=== PATIENT | female | born 1945 | race Two or more races ===

== ENCOUNTER → 2024-08-28 | Outpatient (CLI) | payer MEDICARE, SELFPAY ==
[2024-08-28 12:38] LABS: Basophils # (Auto) 0.1 Thou/mm3 (0.0-0.2); Basophils % (Auto) 1 % (0-2.5); Eosinophils # (Auto) 0.1 Thou/mm3 (0.0-0.5); Eosinophils % (Auto) 2 % (0-10); Hematocrit 32.1 % (36.0-46.0); Hemoglobin 11.1 g/dL (12.0-16.0); Immature Granulocytes % (Auto) 0 % (0-0); Immature Granulocytes Auto 0.02 Thou/mm3 (0.00-0.00); Lymphocytes # (Auto) 1.2 Thou/mm3 (1.0-4.8); Lymphocytes % (Auto) 21 % (10-50); Mean Corpuscular HGB Conc 34.6 g/dl (31.0-37.0); Mean Corpuscular Hemoglobin 34.6 pg (25.0-35.0); Mean Corpuscular Volume 100 fL (80-100); Monocytes # (Auto) 0.3 Thou/mm3 (0.0-0.8); Monocytes % (Auto) 6 % (0-12); Neutrophils # (Auto) 3.9 Thou/mm3 (1.8-7.7); Neutrophils % (Auto) 70 % (37-80); Nucleated Red Blood Cell % 0 /100 WBC (0); Platelet Count 85 Thou/mm3 (140-440); RDW Standard Deviation 47.4 fL (36.4-46.3); Red Blood Count 3.21 Miln/mm3 (4.00-5.20); White Blood Count 5.6 Thou/mm3 (3.6-11.0)
[2024-08-28 12:51] LABS: Alanine Aminotransferase 17 U/L (10-49); Albumin, Serum 3.6 gm/dL (3.4-4.8); Albumin/Globulin Ratio 1.2 (1.2-2.2); Alkaline Phosphatase 79 U/L (46-116); Anion Gap 7 (7-16); Aspartate Amino Transferase 35 U/L (0-34); BUN/Creatinine Ratio 14 Ratio (12-20); Bilirubin,Total 0.5 mg/dL (0.3-1.2); Blood Urea Nitrogen 15 mg/dL (9-23); Calcium 9.9 mg/dL (8.3-10.6); Calcium (Corrected) 10.2 mg/dL (8.5-10.1); Carbon Dioxide 25.6 mMol/L (20.0-31.0); Chloride 106 mMol/L (98-107); Creatinine (Component) 1.1 mg/dL (0.6-1.3); Globulin 2.9 gm/dL (2.3-3.5); Glucose 121 mg/dL (74-106); Osmolality,Calculated 279 (275-295); Sodium 139 mMol/L (136-145); Total Protein 6.5 gm/dL (5.7-8.2); eGFR 50 See Note
== END | disposition home or self-care (01) ==
PROVIDERS: PCP Family Medicine; Referring Provider Internal Medicine Hematology & Oncology; Visit Provider Internal Medicine Hematology & Oncology
DX: C50.119 Malignant neoplasm of central portion of unspecified female breast (principal)
CPT/HCPCS: 36415; 80053; 85025

== ENCOUNTER 2024-09-02 10:27 | Outpatient (RCR) | payer MEDICARE, BC, SELFPAY ==
--- NOTE | 2024-09-02 11:33 | CTCFLWUP_ITS ---
Patient: ELEANOR MARY : 1945 Page 6 of 7 FOLLOW UP NOTE DATE OF SERVICE: 09/02/2024 NAME: ELEANOR MARY ACCOUNT: [id number] : 1945 AGE: 79 INTERVAL HISTORY: Patient is taking her tamoxifen and verzenio. She takes verzenio 100 mg daily and tolerating well. 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 S/p ultrasound-guided biopsy (05/02/2023) Oncotype DX recurrence score 55. In view of the elderly age chemotherapy was not offered. On tamoxifen 20 mg p.o. daily since 07/31/2023. On abemaciclib 100 mg p.o. twice daily since 07/31/2023. S/p adjuvant radiation therapy completed on 10/13/2023. Patient decided not to take adjuvant Zometa PET CT scan (07/28/2023) negative for metastatic disease S/p left breast partial mastectomy and sentinel lymph node biopsy on 06/02/2023. Hypertension Osteoporosis (07/25/2023). Received 1 dose of Prolia on 08/15/2023 DATE OF DIAGNOSIS: 05/02/2023 STAGE/TNM: Stage IIb, ER positive, ID positive, HER2/radha low 1+ high grade invasive ductal carcinoma of the le ft breast. TREATMENT HISTORY: Care?Plan Start?Date Cycle Day Intent PROLia?60mg?every?6?months 11/25/2023 1 180 Palliative zolodronic?acid?adjuvant 10/05/2023 1 180 Curative?(adjuvant) PROLia?60mg?every?6?months 05/03/2024 1 180 Palliative HISTORY OF PRESENT ILLNESS: Eleanor Mary is a 79-year-old SPA speaking female with history of hypertension has the follo wing oncology history. Ms. Mary never had screening mammograms in the past. March 2023: Ms. Mary felt a lump in the lower part of her left breast while she was taking a show er. 04/07/2023: Bilateral diagnostic digital mammography? 04/26/2023: 05/02/2023: Ms. Mary had a stereotactic guided vacuum-assisted left breast biopsy with clip placeme nt 06/02/2023: Ms. Mary had left breast partial mastectomy and sentinel lymph node biopsy 06/23/2023: Oncotype DX? 07/18/2023: Bone density test 07/28/2023: PET/CT scan 07/31/2023: Ms. Mary is started on adjuvant tamoxifen as well as abemaciclib 100 mg p.o. twice constance ly. 08/15/2023:: Ms. Mary is started on adjuvant radiation therapy to the left breast. 08/15/2023: Ms. Mary received first dose of Prolia. OTHER MEDICAL HISTORY/CONDITIONS: COVID?BREAST??CA???HIGH?BLOOD?PRESSURE DENIES FAMILY HISTORY: Patient?denies?family?cancer?history. SOCIAL HISTORY: Occupational?History:?RETIRED Education?Level:?Completed something less than 8th grade Marital?Status:? 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 Citracal + D Slow Release - 600 mg-12.5 mcg (500 unit) 1 tab one tab po twice a day 2. enalapril maleate - 10 mg Twice a Day 3. silver sulfadiazine - Twice a Day 4. tamoxifen - 20 mg 1 tab Daily 5. Toprol XL - 25 mg Daily 6. Verzenio - 100 mg 1 tab Twice a Day Medications Last Reconciled by Flaquita Briscoe MA on 04/29/2024 (Reconcile on Approval: ?) ALLERGIES: No Known Drug Allergies REVIEW OF SYSTEMS: A complete 14-point review of systems was performed and is negative except as noted in interval histo ry. LABORATORY DATA: I have personally reviewed and interpreted each of the patient?s relevant lab tests, abnormal finding s are below: Date 08/28/24 ??WHITE?BLOOD?COUNT?(Thou/mm3) 5.6 ??RED?BLOOD?COUNT?(Miln/mm3) 3.21?L ??HEMOGLOBIN?(gm/dl) 11.1?L ??HEMATOCRIT?(%) 32.1?L ??PLATELET?COUNT?(Thou/mm3) 85?L ??NEUTROPHILS?%,?AUTO?(%) 70 ??LYMPH?%,?AUTO?(%) 21 ??NEUTROPHILS,?AUTO?(Thou/mm3) 3.9 ASSESSMENT/PLAN: 1. Stage IIb, ER positive, ID positive, HER2/radha low 1+ i high grade invasive ductal carcinoma of the left breast. S/p ultrasound-guided biopsy (05/02/2023) Oncotype Dx recurrence score 55 as documented above. Chemotherapy not offered in view of her elderly age. S/p left breast partial mastectomy and sentinel lymph node biopsy on 06/02/2023. Mammogram not completed since 2022 Plan [facility] mammogram and ultrasound of breast PET/CT scan to evaluate metastatic disease Hypercalcemia ? concerning for metastatic disease Repeat cmp and iv fluids Ms. Mary is currently on adjuvant tamoxifen 20 mg p.o. daily as well as abemaciclib 100 mg p.o. tw ice daily. She is tolerating these medications very well without any significant side effects.stop c itracal S/p adjuvant radiation therapy. 2. PET CT scan negative for metastatic disease. 3. osteoporosis. Received 1 dose of Prolia on 09/02/2023 4. Anxiety and depression 5. Hypertension 1. Restart Prolia 60 mg subcu every 6 months. 2. Continue tamoxifen and abemaciclib. 3. I will see Ms. Mary back in clinic in 3-4 weeks s with labs for follow-up RETURN TO CLINIC:3-4 weeks BILLING AND COMPLIANCE: I reviewed external records from providers outside my specialty as summarized above. I spent a total of 50 minutes on this patient?s care on the day of their visit excluding time spent related to any bi lled procedures. This time includes time spent with the patient as well as time spent documenting in the medical record, reviewing patients records and tests, obtaining history, placing orders, communi cating with other healthcare professionals, counseling the patient, family or caregiver, and/or care coordination for the diagnoses above. Electronically Signed by: {Object.Sanct_ID*[email or web address]@M}, {Object.Sanct_ID*PnP.Suffix@U} D: {Object.Sanct_Date} T: {Object.Sanct_Time} CC: Channing?Ca,? PCP: Alex Goodman Referring: Alex Goodman This document was completed utilizing speech recognition software. Grammatical errors, random word in sertions, pronoun errors, and incomplete sentences are an occasional consequence of this system due t o software limitations, ambient noise, and hardware issues. Any formal questions or concerns about th e content, text or information contained within the body of this dictation should be directly address ed to the provider for clarification.
== END 2024-09-13 23:59 | disposition home or self-care (01) ==
LOC: SCTC 10:27
PROVIDERS: PCP Family Medicine; Referring Provider Family Medicine; Visit Provider Internal Medicine Hematology & Oncology
DX: C50.112 Malignant neoplasm of central portion of left female breast (principal); Z17.0 Estrogen receptor positive status [ER+]; Z17.21 Progesterone receptor positive status; Z17.32 Human epidermal growth factor receptor 2 negative status; E83.52 Hypercalcemia; Z79.810 Long term (current) use of selective estrogen receptor modulators (SERMs); M81.0 Age-related osteoporosis without current pathological fracture; F41.9 Anxiety disorder, unspecified; F32.A Depression, unspecified; I10 Essential (primary) hypertension
CPT/HCPCS: Q3014

== ENCOUNTER → 2024-09-04 | Outpatient (CLI) | payer MEDICARE, BC, SELFPAY ==
[2024-09-04 14:04] LABS: Basophils # (Auto) 0.1 Thou/mm3 (0.0-0.2); Basophils % (Auto) 1 % (0-2.5); Eosinophils # (Auto) 0.1 Thou/mm3 (0.0-0.5); Eosinophils % (Auto) 2 % (0-10); Immature Granulocytes % (Auto) 0 % (0-0); Immature Granulocytes Auto 0.01 Thou/mm3 (0.00-0.00); Lymphocytes # (Auto) 1.5 Thou/mm3 (1.0-4.8); Lymphocytes % (Auto) 25 % (10-50); Mean Corpuscular HGB Conc 35.5 g/dl (31.0-37.0); Mean Corpuscular Hemoglobin 35.6 pg (25.0-35.0); Mean Corpuscular Volume 100 fL (80-100); Monocytes # (Auto) 0.4 Thou/mm3 (0.0-0.8); Monocytes % (Auto) 6 % (0-12); Neutrophils # (Auto) 3.9 Thou/mm3 (1.8-7.7); Neutrophils % (Auto) 66 % (37-80); Nucleated Red Blood Cell % 0 /100 WBC (0); Platelet Count 82 Thou/mm3 (140-440); RDW Standard Deviation 47.1 fL (36.4-46.3); Red Blood Count 3.09 Miln/mm3 (4.00-5.20)
[2024-09-04 14:11] LABS: Alanine Aminotransferase 15 U/L (10-49); Albumin, Serum 3.5 gm/dL (3.4-4.8); Albumin/Globulin Ratio 1.2 (1.2-2.2); Alkaline Phosphatase 78 U/L (46-116); Anion Gap 7 (7-16); Aspartate Amino Transferase 34 U/L (0-34); BUN/Creatinine Ratio 14 Ratio (12-20); Bilirubin,Total 0.4 mg/dL (0.3-1.2); Blood Urea Nitrogen 15 mg/dL (9-23); Calcium 9.9 mg/dL (8.3-10.6); Calcium (Corrected) 10.3 mg/dL (8.5-10.1); Carbon Dioxide 25.9 mMol/L (20.0-31.0); Chloride 105 mMol/L (98-107); Creatinine (Component) 1.1 mg/dL (0.6-1.3); Globulin 2.9 gm/dL (2.3-3.5); Glucose 132 mg/dL (74-106); Osmolality,Calculated 278 (275-295); Potassium 4.2 mMol/L (3.4-5.1); Sodium 138 mMol/L (136-145); Total Protein 6.4 gm/dL (5.7-8.2); eGFR 50 See Note
== END | disposition home or self-care (01) ==
PROVIDERS: PCP Family Medicine; Referring Provider Internal Medicine Hematology & Oncology; Visit Provider Internal Medicine Hematology & Oncology
DX: C50.119 Malignant neoplasm of central portion of unspecified female breast (principal)
CPT/HCPCS: 36415; 80053; 85025

== ENCOUNTER → 2024-09-19 | Outpatient (CLI) | payer MEDICARE, BC, SELFPAY | END | disposition home or self-care (01) | LOC: CDIM 14:19 | PROVIDERS: PCP Family Medicine; Referring Provider Internal Medicine Hematology & Oncology; Visit Provider Internal Medicine Hematology & Oncology | DX: Z53.29 Procedure and treatment not carried out because of patient's decision for other reasons (principal) ==

== ENCOUNTER → 2024-09-27 | Outpatient (CLI) | payer MEDICARE, BC, SELFPAY ==
--- NOTE | 2024-09-27 10:00 | XR_ITS ---
Examination: Breast ultrasound complete, bilateral Date and time of exam: September 27, 2024 1011 hours INDICATIONS: Mammogram April 07, 2023 3 suspicious masses left breast nipple level, left breast carcinoma diagnosis 2022 post lumpectomy 6 Technique: Real-time grayscale ultrasonographic imaging bilateral breasts, including all 4 quadrants as well as nipple retroareolar and axillary regions. Findings: No cystic or solid mass involving either breast Subcutaneous edema and skin thickening left breast likely related to lumpectomy and radiation therapy IMPRESSION: BI-RADS Category 0: Incomplete: Need additional imaging evaluation Recommend diagnostic mammography follow-up
--- NOTE | 2024-09-27 11:00 | XR_ITS ---
Examination: Screening digital mammography, bilateral Computer aided detection 3-D breast Tomosynthesis, bilateral Date and time of exam: September 27, 2024 1038 hrs. Compared to mammograms dating to April 07, 2023 Indication: Screening, personal history left breast cancer post treatment Technique: Nonmagnified MLO, CC views of the breasts to been obtained, reconstructed from 3-D Tomosynthesis images. R2 computer aided detection program utilized for evaluation of suspicious masses and/or abnormal calcifications. 3-D Tomosynthesis images obtained. Findings: The breasts are heterogeneously dense, which may obscure small masses Extensive scar formation skin thickening left breast noted consistent with treated left breast cancer post Benign calcifications No interval suspicious masses Impression: BI-RADS category II: Benign Findings. Recommend 1 year follow-up mammogram.
== END | disposition home or self-care (01) ==
LOC: CDIM 09:41
PROVIDERS: PCP Family Medicine; Referring Provider Internal Medicine Hematology & Oncology; Visit Provider Internal Medicine Hematology & Oncology
DX: R92.323 Mammographic fibroglandular density, bilateral breasts (principal); R92.1 Mammographic calcification found on diagnostic imaging of breast; C50.119 Malignant neoplasm of central portion of unspecified female breast
CPT/HCPCS: 76641; 77063; 77067

== ENCOUNTER 2024-10-10 12:57 | Outpatient (RCR) | payer MEDICARE, BC, SELFPAY | END 2024-10-11 23:59 | disposition home or self-care (01) | LOC: SCTC 12:57 | PROVIDERS: PCP Family Medicine; Referring Provider Family Medicine; Visit Provider Nurse Practitioner Family | DX: C50.112 Malignant neoplasm of central portion of left female breast (principal); Z17.0 Estrogen receptor positive status [ER+]; Z17.21 Progesterone receptor positive status; Z17.32 Human epidermal growth factor receptor 2 negative status; Z90.12 Acquired absence of left breast and nipple; Z92.3 Personal history of irradiation; Z79.810 Long term (current) use of selective estrogen receptor modulators (SERMs); M81.0 Age-related osteoporosis without current pathological fracture | CPT/HCPCS: 99212; G0463 ==

== ENCOUNTER → 2024-10-18 | Outpatient (CLI) | payer MEDICARE, BC, SELFPAY ==
[2024-10-18 15:02] LABS: Basophils # (Auto) 0.1 Thou/mm3 (0.0-0.2); Basophils % (Auto) 1 % (0-2.5); Eosinophils # (Auto) 0.1 Thou/mm3 (0.0-0.5); Eosinophils % (Auto) 2 % (0-10); Hematocrit 31.9 % (36.0-46.0); Hemoglobin 11.1 g/dL (12.0-16.0); Immature Granulocytes % (Auto) 0 % (0-0); Immature Granulocytes Auto 0.01 Thou/mm3 (0.00-0.00); Lymphocytes # (Auto) 1.6 Thou/mm3 (1.0-4.8); Lymphocytes % (Auto) 24 % (10-50); Mean Corpuscular HGB Conc 34.8 g/dl (31.0-37.0); Mean Corpuscular Hemoglobin 35.6 pg (25.0-35.0); Mean Corpuscular Volume 102 fL (80-100); Monocytes # (Auto) 0.4 Thou/mm3 (0.0-0.8); Monocytes % (Auto) 5 % (0-12); Neutrophils # (Auto) 4.5 Thou/mm3 (1.8-7.7); Neutrophils % (Auto) 68 % (37-80); Nucleated Red Blood Cell % 0 /100 WBC (0); Platelet Count 89 Thou/mm3 (140-440); Red Blood Count 3.12 Miln/mm3 (4.00-5.20); White Blood Count 6.6 Thou/mm3 (3.6-11.0)
[2024-10-18 15:11] LABS: Alanine Aminotransferase 13 U/L (10-49); Albumin, Serum 3.3 gm/dL (3.4-4.8); Albumin/Globulin Ratio 1.1 (1.2-2.2); Alkaline Phosphatase 77 U/L (46-116); Anion Gap 6 (7-16); Aspartate Amino Transferase < 10 U/L (0-34); BUN/Creatinine Ratio 13 Ratio (12-20); Bilirubin,Total 0.4 mg/dL (0.3-1.2); Blood Urea Nitrogen 16 mg/dL (9-23); Calcium 9.5 mg/dL (8.3-10.6); Calcium (Corrected) 10.1 mg/dL (8.5-10.1); Carbon Dioxide 25.5 mMol/L (20.0-31.0); Chloride 108 mMol/L (98-107); Creatinine (Component) 1.2 mg/dL (0.6-1.3); Glucose 124 mg/dL (74-106); Osmolality,Calculated 279 (275-295); Potassium 3.9 mMol/L (3.4-5.1); Sodium 139 mMol/L (136-145); Total Protein 6.3 gm/dL (5.7-8.2); eGFR 45 See Note
== END | disposition home or self-care (01) ==
PROVIDERS: PCP Family Medicine; Referring Provider Nurse Practitioner Family; Visit Provider Nurse Practitioner Family
DX: C50.112 Malignant neoplasm of central portion of left female breast (principal); C50.119 Malignant neoplasm of central portion of unspecified female breast
CPT/HCPCS: 36415; 80053; 85025

== ENCOUNTER 2024-10-30 09:47 | Outpatient (RCR) | payer MEDICARE, BC, SELFPAY | END 2024-11-11 23:59 | disposition home or self-care (01) | LOC: SCTC 09:47 | PROVIDERS: PCP Family Medicine; Referring Provider Family Medicine; Visit Provider Radiology Therapeutic Radiology | DX: C50.112 Malignant neoplasm of central portion of left female breast (principal); Z17.0 Estrogen receptor positive status [ER+]; Z17.21 Progesterone receptor positive status; Z17.32 Human epidermal growth factor receptor 2 negative status; Z79.810 Long term (current) use of selective estrogen receptor modulators (SERMs); Z90.12 Acquired absence of left breast and nipple | CPT/HCPCS: 99212; J0897; G0463 ==

== ENCOUNTER 2024-12-10 11:03 | Outpatient (RCR) | payer MEDICARE, BC, SELFPAY ==
--- NOTE | 2024-12-10 14:23 | CTCFLWUP_ITS ---
Patient: ELEANOR MARY : 1945 Page 2 of 2 FOLLOW UP NOTE DATE OF SERVICE: 12/10/2024 NAME: ELEANOR MARY ACCOUNT: [id number] : 1945 AGE: 79 INTERVAL HISTORY: Patient presents for a follow-up visit for breast cancer. The patient is currently taking tamoxifen 20mg daily and abemaciclib, both initiated on July 31, 2023. Eleanor Mary, a female with left breast cancer history, presented for follow-up of treatment side effects and recent PET-CT findings. She reported dry mouth, swollen feet, and shortness of breath while on tamoxifen and Verzenio therapy. Imaging showed bilateral pleural effusions and small ascites without metastatic disease. Verzenio was discontinued for 4 weeks with plans for repeat PET-CT, Monica blood test, echocardiogram, and cardiology referral to determine fluid etiology and guide further treatment decisions. Chief Complaint Follow-up for breast cancer treatment, fluid in lungs and abdomen, dry mouth, swollen feet, shortness of breath History of Present Illness Eleanor Mary is a patient with a history of left breast cancer, currently undergoing treatment with tamoxifen and Verzenio due to a high Oncotype Dx score. She presents for follow-up and management of her condition. The patient reports experiencing dry mouth, which is noted as a side effect of her current medication regimen. She also mentions swollen feet and shortness of breath, which may be indicative of fluid retention. The patient's ability to tolerate her current medications is being assessed. There is no mention of cancer symptoms at this time. A recent PET-CT scan was performed to evaluate for potential metastatic disease. While the scan was negative for metastases, it revealed fluid in both lungs and a small amount in the abdomen. The etiology of this fluid accumulation is currently unclear and may be related to heart or lung issues, or possibly cancer. The patient's overall health status and daily functioning are not explicitly discussed in the transcript. However, the presence of swollen feet and shortness of breath suggests potential impact on her daily activities. Medical History - Breast cancer in the left breast Surgical History - Left breast cancer surgery (type and date not specified) Medications and Supplements - Tamoxifen - Verzenio - Causes dry mouth - Blood pressure medication - Possible, not confirmed Review of Systems General: Positive for dry mouth. Cardiovascular: Positive for swollen feet. Respiratory: Positive for shortness of breath. Laboratory, Imaging, and Diagnostic Test Results - PET-CT scan: Negative for metastatic disease. Fluid noted in both lungs and small amount in abdomen. 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 S/p ultrasound-guided biopsy (05/02/2023) Oncotype DX recurrence score 55. In view of the elderly age chemotherapy was not offered. 0n tamoxifen 20 mg p.o. daily since 07/31/2023. On abemaciclib 100 mg p.o. twice daily since 07/31/2023. S/p adjuvant radiation therapy completed on 10/13/2023. Patient decided not to take adjuvant Zometa PET CT scan (07/28/2023) negative for metastatic disease S/p left breast partial mastectomy and sentinel lymph node biopsy on 06/02/2023. Hypertension Osteoporosis (07/25/2023). Received 1 dose of Prolia on 08/15/2023 Malignant neoplasm of central portion of unspecified female breast [ICD10] C50.119 DATE OF DIAGNOSIS: STAGE/TNM: TREATMENT HISTORY: Care?Plan Start?Date Cycle Day Intent PROLia?60mg?every?6?months 11/25/2023 1 180 Palliative zolodronic?acid?adjuvant 10/05/2023 1 180 Curative?(adjuvant) PROLia?60mg?every?6?months 05/03/2024 1 180 Palliative HISTORY OF PRESENT ILLNESS: 07/31/2023: Ms. Mary is started on adjuvant tamoxifen as well as abemaciclib 100 mg p.o. twice daily. 08/15/2023: Ms. Mary is started on adjuvant radiation therapy to the left breast. 09/2023: Ms. Mary received first dose of Prolia. OTHER MEDICAL HISTORY/CONDITIONS: COVID?BREAST??CA???HIGH?BLOOD?PRESSURE DENIES FAMILY HISTORY: Patient?denies?family?cancer?history. SOCIAL HISTORY: Occupational?History:?RETIRED Education?Level:?Completed something less than 8th grade Marital?Status:? 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 abemaciclib - 100 mg 1 tab Daily 2. Citracal + D Slow Release - 600 mg-12.5 mcg (500 unit) 1 tab one tab po twice a day 3. enalapril maleate - 10 mg Twice a Day 4. tamoxifen - 20 mg 1 tab Daily 5. Toprol XL - 25 mg Daily Medications Last Reconciled by Sfoia Cardoso MA on 12/10/2024 ALLERGIES: No Known Drug Allergies REVIEW OF SYSTEMS: A complete 14-point review of systems was performed and is negative except as noted in interval history. PHYSICAL EXAMINATION: VITAL SIGNS: Temperature?99, B/P?147/79, Oxygen?Saturation?98% PAIN: 0 - No pain ECOG Performance Status: 1 - Symptomatic; ambulatory; restricted in strenuous activity GENERAL APPEARANCE: Appears well, in no apparent distress, appropriately interactive. HEENT: Normocephalic, no temporal wasting, normal conjunctiva, no scleral icterus, normal hearing, lips without lesions, neck normal range of motion. CARDIOVASCULAR: Not assessed. PULMONARY: Normal respiratory effort, no respiratory distress or use of accessory muscles, speaking in full sentences, no tachypnea. EXTREMITIES: No pedal edema or cyanosis. SKIN: Normal skin appearance. NEUROLOGIC: Alert and oriented x4. PSHYCHIATRIC: Appropriate affect, mood normal, behavior normal, intact thought and speech. LABORATORY DATA: I have personally reviewed and interpreted each of the patient?s relevant lab tests, abnormal findings are below: Date 09/04/24 10/18/24 ??WHITE?BLOOD?COUNT?(Thou/mm3) 6.0 6.6 ??RED?BLOOD?COUNT?(Miln/mm3) 3.09?L 3.12?L ??HEMOGLOBIN?(gm/dl) 11.0?L 11.1?L ??HEMATOCRIT?(%) 31.0?L 31.9?L ??PLATELET?COUNT?(Thou/mm3) 82?L 89?L ??NEUTROPHILS?%,?AUTO?(%) 66 68 ??LYMPH?%,?AUTO?(%) 25 24 ??NEUTROPHILS,?AUTO?(Thou/mm3) 3.9 4.5 ??GLUCOSE,RANDOM?(mg/dL) 132?H 124?H ??BLOOD?UREA?NITROGEN?(mg/dL) 15 16 ??CREATININE?(mg/dL) 1.10 1.20 ??SODIUM?(mmol/L) 138 139 ??POTASSIUM?(mmol/L) 4.2 3.9 ??CHLORIDE?(mmol/L) 105 108?H ??CrCl?(CandG)?(ml/min) 41.25 37.92 ??AST/SGOT?(Unit/L) 34 <?10 ??ALT/SGPT?(Unit/L) 15 13 ??ALKALINE?PHOSPHATASE?(Unit/L) 78 77 ??BILIRUBIN,?TOTAL?(mg/dL) 0.4 0.4 ??PROTEIN?TOTAL?(gm/dl) 6.4 6.3 ??ALBUMIN,?SERUM?(gm/dl) 3.5 3.3?L ??GLOBULIN?(gm/dl) 2.9 3.0 ??ALBUMIN/GLOBULIN?RATIO 1.2 1.1?L ??CALCIUM,?SERUM?(mg/dL) 9.9 9.5 ??CALCIUM?SERUM?(CORRECTED)?(mg/dL) 10.3?H 10.1 ASSESSMENT/PLAN: 1. Stage IIb, ER positive, TN positive, HER2/radha low 1+ i high grade invasive ductal carcinoma of the left breast. S/p ultrasound-guided biopsy (05/02/2023) Oncotype Dx recurrence score 55 as documented above. Chemotherapy not offered in view of her elderly age. S/p left breast partial mastectomy and sentinel lymph node biopsy on 06/02/2023. S/p adjuvant radiation therapy. PET CT negative for metatstic disease, 07/28/2023. Bilateral breast US requesting diagnostic mammogram, 09/27/2024. Bilateral breast mammogram shows benign findings, 1 year mammogram recommended, 09/30/2024. Hypercalcemia ? concerning for metastatic disease, resolved, patient previously stopped citracal due to hypercalcemia. Currently on adjuvant tamoxifen 20 mg p.o. daily as well as abemaciclib 100 mg p.o. twice daily. She is tolerating these medications well without any significant side effects. Osteoporosis. Received 1 dose of Prolia on 09/02/2023, pending dental clearance prior to restarting. Continue tamoxifen and verzenio (abemaciclib). Pending restarting prolia. Pending open PET/CT in [place] to evaluate for metastic disease scheduled for 11/27/2024. Eleanor Mary, female with history of left breast cancer, currently on tamoxifen and Verzenio, presenting for follow-up with recent PET-CT findings of bilateral pleural effusions and ascites. History of left breast cancer Assessment: Patient has a history of left breast cancer with a high Oncotype Dx score, currently being treated with tamoxifen and Verzenio instead of chemotherapy. Recent PET-CT scan is negative for metastatic disease but shows bilateral pleural effusions and a small amount of ascites. The etiology of the fluid accumulation is unclear and could be due to cardiac issues, pulmonary problems, or potentially cancer-related. Patient reports dry mouth as a side effect of current medication regimen. There are also concerns about possible fluid retention, manifesting as swollen feet and shortness of breath. Plan: - Continue tamoxifen (current dose) - Discontinue Verzenio for 4 weeks - Repeat PET-CT scan in 3-4 weeks to reassess fluid accumulation - Order Monica blood test in 2-3 weeks to detect cancer DNA - If clear, repeat every 3 months for cancer recurrence monitoring - Order echocardiogram to evaluate cardiac function - Refer to forest scientist for evaluation of possible heart issues - Follow-up appointment in 4 weeks - Review echocardiogram results - Decide on continuation of current medication based on test results - Patient education: - Elevate feet at home to reduce swelling - Monitor daily weight; weight gain >1 lb may indicate excessive fluid intake - Use compression socks, massage, or vibrating machine to reduce swelling - Drink water as needed, avoiding over-hydration - If significant fluid accumulation causes breathing difficulties, go to ER for diuretic treatment 2. Continue with PCP for management of chronic condition such as depression and anxiety, HTN. ORDERS: Order # Description [id number] Comprehensive Metabolic Panel - 12 + CBC with Auto Diff [id number] CA 15-[id number] Scan + Chest + With W/O Contrast [id number] MD Follow Up 4 Week [id number] Basic Metabolic Panel [id number] Basic Metabolic Panel [id number] Basic Metabolic Panel [id number] Basic Metabolic Panel [id number] Basic Metabolic Panel RETURN TO CLINIC: BILLING AND COMPLIANCE: I reviewed external records from providers outside my specialty as summarized above. I spent a total of 50 minutes on this patient?s care on the day of their visit excluding time spent related to any billed procedures. This time includes time spent with the patient as well as time spent documenting in the medical record, reviewing patients records and tests, obtaining history, placing orders, communicating with other healthcare professionals, counseling the patient, family or caregiver, and/or care coordination for the diagnoses above. Electronically Signed by: Kenny Hutton MD T: 2:20 PM CC: Channing?Ca? PCP: Alex Goodman Referring: Alex Goodman This document was completed utilizing speech recognition software. Grammatical errors, random word insertions, pronoun errors, and incomplete sentences are an occasional consequence of this system due to software limitations, ambient noise, and hardware issues. Any formal questions or concerns about the content, text or information contained within the body of this dictation should be directly addressed to the provider for clarification.
== END 2024-12-11 23:59 | disposition home or self-care (01) ==
LOC: SCTC 11:03
PROVIDERS: PCP Family Medicine; Referring Provider Family Medicine; Visit Provider Internal Medicine Hematology & Oncology
DX: C50.112 Malignant neoplasm of central portion of left female breast (principal); Z17.0 Estrogen receptor positive status [ER+]; Z17.21 Progesterone receptor positive status; Z17.32 Human epidermal growth factor receptor 2 negative status; Z79.810 Long term (current) use of selective estrogen receptor modulators (SERMs); R68.2 Dry mouth, unspecified; T38.6X5D Adverse effect of antigonadotrophins, antiestrogens, antiandrogens, not elsewhere classified, subsequent encounter; Z92.3 Personal history of irradiation; Z90.12 Acquired absence of left breast and nipple; I10 Essential (primary) hypertension; M81.0 Age-related osteoporosis without current pathological fracture; J90 Pleural effusion, not elsewhere classified; R18.8 Other ascites
CPT/HCPCS: 99212; G0463

== ENCOUNTER → 2024-12-18 | Outpatient (CLI) | payer MEDICARE, BC, SELFPAY ==
--- NOTE | 2024-12-18 13:30 | ECHO_ITS ---
Transthoracic Echo Report Ht (in): 65 Wt (lb): 204 Exam Location: Echo Lab Status: [facility] Director: MISAEL Omer^^^^ Indications: Procedure Performed: BP: / HR: 101 Rhythm: Atrial flutter Technical Quality: Very technically difficult study MEASUREMENTS (Male / Female) Normal Values 2D ECHO LV Diastolic Diameter PLAX 3.5 cm 4.2 - 5.9 / 3.9 - 5.3 cm LV Systolic Diameter PLAX 2.0 cm IVS Diastolic Thickness 0.9 cm 0.6 - 1.0 / 0.6 - 0.9 cm LVPW Diastolic Thickness 0.9 cm 0.6 - 1.0 / 0.6 - 0.9 cm LV Relative Wall Thickness 0.5 LVOT Diameter 1.5 cm Aortic Root Diameter 3.2 cm LA Systolic Diameter LX 5.0 cm 3.0 - 4.0 / 2.7 - 3.8 cm LA Volume Index 15.5 cm?/m? 16 - 28 cm?/m? DOPPLER AV Peak Velocity 183.5 cm/s AV Peak Gradient 13.5 mmHg AV Mean Gradient 9.0 mmHg AV Velocity Time Integral 42.3 cm LVOT Peak Velocity 136.0 cm/s LVOT Peak Gradient 7.4 mmHg LVOT Velocity Time Integral 38.1 cm LVOT Cardiac Index 3243.1 cm?/min?m? AV Area Cont Eq vti 1.6 cm? AV Area Cont Eq pk 1.3 cm? MV Area PHT 4.3 cm? Mitral E Point Velocity 100.0 cm/s Mitral A Point Velocity 165.0 cm/s Mitral E to A Ratio 0.6 LV E' Lateral Velocity 7.1 cm/s Mitral E to LV E' Lateral Ratio 14.0 LV E' Septal Velocity 6.6 cm/s Mitral E to LV E' Septal Ratio 15.2 TR Peak Velocity 284.0 cm/s TR Peak Gradient 32.3 mmHg PV Peak Velocity 142.0 cm/s PV Peak Gradient 8.1 mmHg RVOT Peak Velocity 90.9 cm/s FINDINGS Left Ventricle The left ventricular ejection fraction is normal, estimated at 55-60%. Regional wall motion abnormalities are present. There is grade I diastolic dysfunction of the left ventricle (impaired relaxation pattern). Right Ventricle The right ventricle is normal in size and systolic function. The estimated right ventricular systolic pressure, 35 mmHg. Left Atrium The left atrial cavity size is mildly increased. Right Atrium The right atrium is normal by two-dimensional imaging, color flow and Doppler imaging with no structural abnormalities, no thrombus formation present. Atrial Septum The interatrial septum appears normal with no evidence of a shunt. Aorta The aorta is normal by two-dimensional, color flow and Doppler interrogation. Mitral Valve Mild thickening of the mitral valve leaflets. Mild mitral regurgitation. Moderate mitral annular calcification. Aortic Valve Aortic valve sclerosis. Diffuse calcification of the aortic valve. Mild thickening of the aortic valve leaflets. Tricuspid Valve There is mild tricuspid valve regurgitation. Pulmonic Valve The pulmonic valve is not well visualized. There is no significant pulmonic valve regurgitation. Vessels The pulmonary artery appears normal. The inferior vena cava pulmonary and hepatic veins appear normal. Pericardium The pericardium is normal by two-dimensional imaging. There is no significant pericardial effusion. CONCLUSIONS Indication: Malignant neoplasm of the breast Technically difficult study and suboptimal images which may affect the interpretation of the study. Normal LV size and function with an estimated EF of 55 to 60%. Diastolic dysfunction stage I. Normal RV size and function with mildly elevated estimated RVSP of 35 to 40 mmHg. Mild aortic valve stenosis with moderate aortic valve calcification. Moderate MAC, mild MR and mild TR. David Vega (Electronically Signed) Final Date: 18 Dec 2024 20:04
== END | disposition home or self-care (01) ==
LOC: SDIM 13:09
PROVIDERS: PCP Family Medicine; Referring Provider Internal Medicine Hematology & Oncology; Visit Provider Internal Medicine Hematology & Oncology
DX: I08.1 Rheumatic disorders of both mitral and tricuspid valves (principal); C50.119 Malignant neoplasm of central portion of unspecified female breast; C50.112 Malignant neoplasm of central portion of left female breast
CPT/HCPCS: 93306

== ENCOUNTER → 2025-01-01 | Outpatient (CLI) | payer MEDICARE, BC, SELFPAY ==
[2024-12-31 13:05] LABS: Basophils # (Auto) 0.1 Thou/mm3 (0.0-0.2); Basophils % (Auto) 1 % (0-2.5); Eosinophils # (Auto) 0.1 Thou/mm3 (0.0-0.5); Eosinophils % (Auto) 1 % (0-10); Hematocrit 30.1 % (36.0-46.0); Hemoglobin 10.6 g/dL (12.0-16.0); Immature Granulocytes % (Auto) 0 % (0-0); Immature Granulocytes Auto 0.02 Thou/mm3 (0.00-0.00); Lymphocytes # (Auto) 1.4 Thou/mm3 (1.0-4.8); Lymphocytes % (Auto) 17 % (10-50); Mean Corpuscular HGB Conc 35.2 g/dl (31.0-37.0); Mean Corpuscular Hemoglobin 35.5 pg (25.0-35.0); Mean Corpuscular Volume 101 fL (80-100); Monocytes # (Auto) 0.6 Thou/mm3 (0.0-0.8); Monocytes % (Auto) 8 % (0-12); Neutrophils # (Auto) 5.8 Thou/mm3 (1.8-7.7); Neutrophils % (Auto) 73 % (37-80); Nucleated Red Blood Cell % 0 /100 WBC (0); Platelet Count 132 Thou/mm3 (140-440); Red Blood Count 2.99 Miln/mm3 (4.00-5.20)
[2024-12-31 13:15] LABS: Alanine Aminotransferase 12 U/L (10-49); Albumin, Serum 3.2 gm/dL (3.4-4.8); Alkaline Phosphatase 63 U/L (46-116); Anion Gap 8 (7-16); Aspartate Amino Transferase 42 U/L (0-34); BUN/Creatinine Ratio 14 Ratio (12-20); Blood Urea Nitrogen 19 mg/dL (9-23); Calcium 9.7 mg/dL (8.3-10.6); Calcium (Corrected) 10.3 mg/dL (8.5-10.1); Carbon Dioxide 26.2 mMol/L (20.0-31.0); Chloride 104 mMol/L (98-107); Creatinine (Component) 1.4 mg/dL (0.6-1.3); Globulin 3.1 gm/dL (2.3-3.5); Glucose 107 mg/dL (74-106); Osmolality,Calculated 277 (275-295); Potassium 4.1 mMol/L (3.4-5.1); Sodium 138 mMol/L (136-145); Total Protein 6.3 gm/dL (5.7-8.2); eGFR 38 See Note
--- NOTE | 2025-01-01 15:39 | XR_ITS ---
Examination: CT chest with intravenous contrast CT chest without intravenous contrast 2-D reconstructions Date and time of exam:January 01, 2025 at 1613 hours INDICATIONS: Diagnosis malignant neoplasm central portion unspecified breast, left breast lumpectomy history CTDI:vol (mGy) 30.1 DLP: (mGycm) 903 Technique: Multiple axial sections of the thorax have been obtained. 3 mm slice thickness, from the hemidiaphragms to above the apices of the lungs. Mediastinal and lung density settings have been obtained. Intravenous contrast administered 60 cc Isovue 370. Noncontrast images have also been obtained. 2-D sagittal coronal images obtained. Low dose protocols were performed. One or more of the following dose reduction techniques were used; automated exposure control, adjustment of the mA and/or KV according to patient size, use of iterative reconstruction technique. Findings: Right thyromegaly 23 mm right thyroid nodule No thoracic aortic aneurysm dilatation Pulmonary artery segments are not enlarged No pulmonary artery filling defects Mitral valvular calcification Mild enlargement left atrium No paratracheal tracheobronchial or bronchopulmonary adenopathy Skin thickening and diffuse increased density left breast which may be post treatment findings No chest wall mass or axillary lymphadenopathy Prominent vasculature with small bilateral pleural effusions No pulmonary nodules Cirrhosis, liver decreased in size with nodular contour Significant ascites No splenomegaly 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 IMPRESSION: Right thyromegaly with 23 mm right thyroid nodule, consider dedicated thyroid sonography follow-up Presumed posttreatment changes in the left breast Mild heart failure, recommend PA chest follow-up Small bilateral pleural effusions No mediastinal lymphadenopathy No pneumonia or pulmonary nodules Cirrhosis Significant ascites amenable to ultrasound-guided paracentesis
== END | disposition home or self-care (01) ==
LOC: CCTX 14:59 → SCAT 15:00
PROVIDERS: PCP Family Medicine; Referring Provider Internal Medicine Hematology & Oncology; Visit Provider Internal Medicine Hematology & Oncology
DX: E01.0 Iodine-deficiency related diffuse (endemic) goiter (principal); I50.9 Heart failure, unspecified; J90 Pleural effusion, not elsewhere classified; K70.31 Alcoholic cirrhosis of liver with ascites; C50.119 Malignant neoplasm of central portion of unspecified female breast; C50.112 Malignant neoplasm of central portion of left female breast
CPT/HCPCS: 36415; 71270; 80053; 85025; A4649; Q9967

== ENCOUNTER → 2025-01-28 | Outpatient (CLI) | payer MEDICARE, BC, SELFPAY ==
[2025-01-28 12:59] LABS: Basophils # (Auto) 0.1 Thou/mm3 (0.0-0.2); Basophils % (Auto) 1 % (0-2.5); Eosinophils # (Auto) 0.1 Thou/mm3 (0.0-0.5); Eosinophils % (Auto) 1 % (0-10); Hematocrit 30.3 % (36.0-46.0); Hemoglobin 10.3 g/dL (12.0-16.0); Immature Granulocytes % (Auto) 0 % (0-0); Immature Granulocytes Auto 0.02 Thou/mm3 (0.00-0.00); Lymphocytes % (Auto) 13 % (10-50); Mean Corpuscular Hemoglobin 34.9 pg (25.0-35.0); Mean Corpuscular Volume 103 fL (80-100); Monocytes # (Auto) 0.6 Thou/mm3 (0.0-0.8); Monocytes % (Auto) 8 % (0-12); Neutrophils # (Auto) 5.5 Thou/mm3 (1.8-7.7); Neutrophils % (Auto) 77 % (37-80); Nucleated Red Blood Cell % 0 /100 WBC (0); Platelet Count 128 Thou/mm3 (140-440); RDW Standard Deviation 46.9 fL (36.4-46.3); Red Blood Count 2.95 Miln/mm3 (4.00-5.20); White Blood Count 7.2 Thou/mm3 (3.6-11.0)
[2025-01-28 13:38] LABS: Alanine Aminotransferase 16 U/L (10-49); Albumin, Serum 3.1 gm/dL (3.4-4.8); Albumin/Globulin Ratio 1.1 (1.2-2.2); Alkaline Phosphatase 60 U/L (46-116); Anion Gap 9 (7-16); Aspartate Amino Transferase 47 U/L (0-34); BUN/Creatinine Ratio 13 Ratio (12-20); Bilirubin,Total 0.8 mg/dL (0.3-1.2); Blood Urea Nitrogen 20 mg/dL (9-23); Calcium 9.9 mg/dL (8.3-10.6); Calcium (Corrected) 10.6 mg/dL (8.5-10.1); Carbon Dioxide 22.3 mMol/L (20.0-31.0); Chloride 107 mMol/L (98-107); Creatinine (Component) 1.5 mg/dL (0.6-1.3); Globulin 2.8 gm/dL (2.3-3.5); Glucose 114 mg/dL (74-106); Osmolality,Calculated 279 (275-295); Potassium 4.2 mMol/L (3.4-5.1); Sodium 138 mMol/L (136-145); Total Protein 5.9 gm/dL (5.7-8.2); eGFR 35 See Note
[2025-01-28 13:47] LABS: CA 15-3 17.5 U/mL (<32.4)
== END | disposition home or self-care (01) ==
PROVIDERS: PCP Family Medicine; Referring Provider Internal Medicine Hematology & Oncology; Visit Provider Internal Medicine Hematology & Oncology
DX: C50.119 Malignant neoplasm of central portion of unspecified female breast (principal); C50.112 Malignant neoplasm of central portion of left female breast
CPT/HCPCS: 36415; 80053; 85025; 86300

== ENCOUNTER 2025-01-30 13:09 | Outpatient (RCR) | payer MEDICARE, BC, SELFPAY | END 2025-02-10 23:59 | disposition home or self-care (01) | LOC: SCTC 13:09 | PROVIDERS: PCP Nurse Practitioner Family; Referring Provider Family Medicine; Visit Provider Internal Medicine Hematology & Oncology | DX: C50.812 Malignant neoplasm of overlapping sites of left female breast (principal); Z17.0 Estrogen receptor positive status [ER+]; Z17.21 Progesterone receptor positive status; Z17.32 Human epidermal growth factor receptor 2 negative status; M81.0 Age-related osteoporosis without current pathological fracture; K74.60 Unspecified cirrhosis of liver; R60.9 Edema, unspecified; R18.8 Other ascites | CPT/HCPCS: 99213; G0463 ==

== ENCOUNTER 2025-01-30 14:33 | Emergency (ER) | payer MEDICARE, BC, SELFPAY ==
[2025-01-30 14:50] VITALS: BP 120/74; PULSE 86; RESP 18; TEMP 36.8; O2SAT 99; BMI 35.6
--- NOTE | 2025-01-30 15:12 | XR_ITS ---
Examination: Venous duplex lower extremity sonogram, bilateral. Date and time of exam: January 30, 2025 1531 hours INDICATIONS: Bilateral leg swelling beginning one month ago Technique: Multiple sonographic images of the deep venous system have been obtained. B-mode/2-D grayscale imaging of vascular structures and Doppler spectral analysis (waveforms) and color performed Both legs are examined. Findings: Deep venous systems do not demonstrate abnormal echogenicity. All visualized deep veins exhibit compressibility. All visualized deep veins exhibit augmentation. Impression: Negative for deep vein thrombosis
--- NOTE | 2025-01-30 15:12 | PD.EDEXREM ---
ED Extremity Problem RME/HPI General Chief complaint: Extremity Problem,Nontraumatic Stated complaint: Legs swollen X 1.5 month, poss. blood clot Time Seen by Provider: 01/30/25 14:45 Arrival date/time: 01/30/25 14:33 RME / HPI RME / HPI Narrative: 79-year-old female patient with significant history of hypertension, liver cirrhosis, was sent to us by PCP to rule out bilateral lower extremity DVT. According to the family patient's leg swelling has been ongoing for more than 1 month, seen by PCP and worried about blood clots. Patient is pending referral to liver specialist for the liver cirrhosis. Patient denies any redness denies any shortness of breath denies any other complaints. Patient is ambulatory. Related Data Home Medications ?Medication ?Instructions ?Recorded ?Confirmed enalapril maleate 10 mg tablet 10 mg PO BID 05/31/23 05/31/23 metoprolol succinate 25 mg 25 mg PO QDAY 05/31/23 05/31/23 tablet,extended release 24 hr Allergies Allergy/AdvReac Type Severity Reaction Status Date / Time peanut Allergy Verified 01/30/25 14:39 Review of Systems Review of Systems Narrative Review of Systems: Review of system reviewed and within normal limits except mentioned in HPI ED Exam Narrative Physical exam: VITAL SIGNS: Reviewed. GENERAL APPEARANCE: Alert and interactive, follows commands, no acute distress, HEAD AND FACE: Non-traumatic. ENT: PERRL, pink conjunctivitis, eyelid no trauma, Mucous membrane moist. NECK: Supple, nontender, no nuchal rigidity. CHEST: No tenderness, no crepitus, no paradoxical movement, no retractions. LUNGS: Clear, well ventilated, symmetric, no rales, no wheezing, no ronchi, no stridor, good breath sounds bilaterally. HEART: Regular rate, regular rhythm, no murmur, no gallops. ABDOMEN: Soft, positive bowel sounds, nondistended, no guarding, nontender, no rebound, no masses, RECTAL: Deferred. GENITAL: Deferred. NEUROLOGICAL: Gross motor function intact sensory function intact, Appropriate for age. MUSCULOSKELETAL: low back nontender, full range of motion. EXTREMITIES: Bilateral +2 lower extremity edema nontender, full range of motion. SKIN: Color pink, dry, no rash, no lacerations, no abrasions, no contusions. LYMPHATICS: Deferred. Course Quality Measures none Orders Category Date Time Status US venous doppler LE BI Stat Exams 01/30/25 15:12 Completed Vital Signs Vital signs: Vital Signs Temperature 98.3 F 01/30/25 14:50 Pulse Rate 86 01/30/25 14:50 Respiratory Rate 18 01/30/25 14:50 Blood Pressure 120/74 01/30/25 14:50 Pulse Oximetry (%) 99 01/30/25 14:50 Oxygen Delivery Method Room Air 01/30/25 14:50 Extremity Problem MDM Narrative MDM Narrative:: 79-year-old female patient with significant history of hypertension, liver cirrhosis, was sent to us by PCP to rule out bilateral lower extremity DVT. According to the family patient's leg swelling has been ongoing for more than 1 month, seen by PCP and worried about blood clots. Patient is pending referral to liver specialist for the liver cirrhosis. Patient denies any redness denies any shortness of breath denies any other complaints. Patient is ambulatory. Her PCP recently stopped her water pills due to worsening kidney function. Patient ultrasound of the bilateral lower extremities negative for DVT. Patient was advised to wear compression stocking, elevate legs, and do range of motion of the lower extremities as needed Patient appears nontoxic and hemodynamically stable .Decision to discharge the patient. The patient/family was given an opportunity to ask questions and understood their discharge instructions. Patient data External records reviewed:: None Clinical information provided by:: patient and family Social determinants that could affect healthcare access:: none Patient has the following chronic illnesses:: Hypertension, liver cirrhosis history of cancer How is presenting disease/condition affected by chronic disease/condition?: exacerbated by Evaluation data The following diagnostics were reviewed and interpreted by me:: radiology exam(s) Lab and/or radiology exams considered but not ordered:: None Interpretation Summary: Ultrasound of bilateral lower extremities negative for DVT Medications / Prescriptions Medications or Prescriptions considered but not ordered:: None Medication administrations:: None Consultations Consultation(s) initiated? (list below): No Diagnosis Extremity Problem Differential Diagnosis: cellulitis, deep venous thrombosis of upper extremity and lower extremity edema Most likely diagnosis given after review of the tests above:: Lower leg edema Admission Indicated Admission indicated?: not indicated Admission Request Was there a request for admission?: No Disposition Plan Disposition Plan: Discharge Discharge Attestation Discharge Attestation: The patient and all family members were given an opportunity to ask questions and understood the discharge instructions. Discharge instructions specifically effects, indications for sooner follow up or return to the emergency department, and the expected course of current diagnosis. Patient condition: Stable Discharge Plan Plan Patient Disposition: HOME (Self Care) Discharge Disposition comment: Stable Prescriptions/Referrals Prescriptions/Med Rec: No Action enalapril maleate 10 mg Tablet 10 mg PO BID metoprolol succinate 25 mg Tablet Extended Release 24 Hr 25 mg PO QDAY Referrals: Alex Goodman MD [Primary Care Provider] - In 1 week Problem List Clinical Impression: Lower extremity edema Patient/Caregiver Discharge Instructions Discharge Activity: activity as tolerated Education Materials: ED Lymphedema Additional Instructions: Thank you for the opportunity for serving you today. You are stable for discharged . You are advised to: Follow-up with your PCP in 1 to 2 days Return to ED for worsening of symptoms Elevate leg as needed Wear compression stocking in the morning remove it during the night Do range of motion exercises of your lower extremity Print Language: Macedonian Stand Alone Forms: [facility] Award Info., Patient Portal Info Letter LINDA/AMARILYS Supervising Physician LINDA/AMARILYS Supervising Physician: MD Luz Marina
== END 2025-01-30 19:03 | disposition home or self-care (01) ==
PROVIDERS: Emergency Provider Emergency Medicine; PCP Family Medicine
DX: R60.0 Localized edema (principal)
CPT/HCPCS: 93970; 99284

== ENCOUNTER → 2025-02-04 | Outpatient (CLI) | payer MEDICARE, BC, SELFPAY ==
[2025-02-04 12:27] LABS: Basophils # (Auto) 0.1 Thou/mm3 (0.0-0.2); Basophils % (Auto) 1 % (0-2.5); Eosinophils # (Auto) 0.1 Thou/mm3 (0.0-0.5); Eosinophils % (Auto) 1 % (0-10); Hematocrit 29.3 % (36.0-46.0); Hemoglobin 10.3 g/dL (12.0-16.0); Immature Granulocytes % (Auto) 0 % (0-0); Immature Granulocytes Auto 0.02 Thou/mm3 (0.00-0.00); Lymphocytes # (Auto) 1.2 Thou/mm3 (1.0-4.8); Lymphocytes % (Auto) 15 % (10-50); Mean Corpuscular HGB Conc 35.2 g/dl (31.0-37.0); Mean Corpuscular Hemoglobin 34.8 pg (25.0-35.0); Mean Corpuscular Volume 99 fL (80-100); Monocytes # (Auto) 0.6 Thou/mm3 (0.0-0.8); Monocytes % (Auto) 7 % (0-12); Neutrophils % (Auto) 75 % (37-80); Nucleated Red Blood Cell % 0 /100 WBC (0); Platelet Count 135 Thou/mm3 (140-440); RDW Standard Deviation 46.4 fL (36.4-46.3); Red Blood Count 2.96 Miln/mm3 (4.00-5.20)
[2025-02-04 12:35] LABS: Albumin, Serum 3.2 gm/dL (3.4-4.8); Anion Gap 7 (7-16); BUN/Creatinine Ratio 16 Ratio (12-20); Blood Urea Nitrogen 21 mg/dL (9-23); Calcium 9.8 mg/dL (8.3-10.6); Calcium (Corrected) 10.4 mg/dL (8.5-10.1); Carbon Dioxide 22.8 mMol/L (20.0-31.0); Chloride 107 mMol/L (98-107); Creatinine (Component) 1.3 mg/dL (0.6-1.3); Glucose 115 mg/dL (74-106); Osmolality,Calculated 277 (275-295); Parathyroid Hormone Intact 66.9 pg/ml (18.5-88.0); Phosphorous 2.7 mg/dL (2.4-5.1); Potassium 4.4 mMol/L (3.4-5.1); Sodium 137 mMol/L (136-145); eGFR 41 See Note
== END | disposition home or self-care (01) ==
LOC: SLAB 11:23
PROVIDERS: PCP Family Medicine; Referring Provider Internal Medicine; Visit Provider Internal Medicine
DX: I12.9 Hypertensive chronic kidney disease with stage 1 through stage 4 chronic kidney disease, or unspecified chronic kidney disease (principal); N18.32 Chronic kidney disease, stage 3b
CPT/HCPCS: 36415; 80069; 82306; 83970; 85025

== ENCOUNTER → 2025-03-04 | Outpatient (CLI) | payer MEDICARE, BC, SELFPAY ==
[2025-03-04 11:56] LABS: Basophils # (Auto) 0.1 Thou/mm3 (0.0-0.2); Basophils % (Auto) 1 % (0-2.5); Eosinophils # (Auto) 0.1 Thou/mm3 (0.0-0.5); Eosinophils % (Auto) 1 % (0-10); Hematocrit 30.6 % (36.0-46.0); Hemoglobin 10.5 g/dL (12.0-16.0); Immature Granulocytes Auto 0.02 Thou/mm3 (0.00-0.00); Lymphocytes # (Auto) 1.6 Thou/mm3 (1.0-4.8); Lymphocytes % (Auto) 20 % (10-50); Mean Corpuscular HGB Conc 34.3 g/dl (31.0-37.0); Mean Corpuscular Hemoglobin 34.7 pg (25.0-35.0); Mean Corpuscular Volume 101 fL (80-100); Monocytes # (Auto) 0.5 Thou/mm3 (0.0-0.8); Monocytes % (Auto) 6 % (0-12); Neutrophils # (Auto) 5.9 Thou/mm3 (1.8-7.7); Neutrophils % (Auto) 72 % (37-80); Nucleated Red Blood Cell # 0.00 Thou/mm3 (0.00-0.00); Nucleated Red Blood Cell % 0 /100 WBC (0); Platelet Count 143 Thou/mm3 (140-440); RDW Standard Deviation 54.0 fL (36.4-46.3); Red Blood Count 3.03 Miln/mm3 (4.00-5.20); White Blood Count 8.2 Thou/mm3 (3.6-11.0)
[2025-03-04 12:04] LABS: Alanine Aminotransferase 11 U/L (10-49); Albumin, Serum 3.2 gm/dL (3.4-4.8); Albumin/Globulin Ratio 0.9 (1.2-2.2); Alkaline Phosphatase 56 U/L (46-116); Anion Gap 12 (7-16); Aspartate Amino Transferase 36 U/L (0-34); BUN/Creatinine Ratio 13 Ratio (12-20); Bilirubin,Total 1.1 mg/dL (0.3-1.2); Blood Urea Nitrogen 32 mg/dL (9-23); Calcium 9.9 mg/dL (8.3-10.6); Calcium (Corrected) 10.5 mg/dL (8.5-10.1); Carbon Dioxide 24.0 mMol/L (20.0-31.0); Chloride 105 mMol/L (98-107); Creatinine (Component) 2.4 mg/dL (0.6-1.3); Globulin 3.4 gm/dL (2.3-3.5); Glucose 115 mg/dL (74-106); Osmolality,Calculated 289 (275-295); Potassium 3.6 mMol/L (3.4-5.1); Sodium 141 mMol/L (136-145); Total Protein 6.6 gm/dL (5.7-8.2); eGFR 20 See Note
[2025-03-04 12:20] LABS: CA 15-3 18.3 U/mL (<32.4); Carcinoembryonic Antigen 1.7 ng/mL (0.0-5.0)
== END | disposition home or self-care (01) ==
LOC: SLAB 11:05
PROVIDERS: PCP Family Medicine; Referring Provider Nurse Practitioner Family; Visit Provider Nurse Practitioner Family
DX: C50.119 Malignant neoplasm of central portion of unspecified female breast (principal); C50.112 Malignant neoplasm of central portion of left female breast
CPT/HCPCS: 36415; 80053; 82378; 85025; 86300

== ENCOUNTER → 2025-03-04 | Outpatient (CLI) | payer MEDICARE, BC, SELFPAY | END | disposition home or self-care (01) | PROVIDERS: PCP Family Medicine; Referring Provider Internal Medicine Hematology & Oncology; Visit Provider Internal Medicine Hematology & Oncology | DX: Z53.8 Procedure and treatment not carried out for other reasons (principal) ==

== ENCOUNTER → 2025-03-06 | Outpatient (CLI) | payer MEDICARE, BC, SELFPAY ==
[2025-03-06] MEDS: ALBUMIN HUMAN 25% IVPB 25 GM/100 ML BTL IV ×2 (14:12→15:15)
== END | disposition home or self-care (01) ==
PROVIDERS: PCP Family Medicine; Referring Provider Internal Medicine Hematology & Oncology; Visit Provider Internal Medicine Hematology & Oncology
DX: Z53.8 Procedure and treatment not carried out for other reasons (principal)
CPT/HCPCS: P9047

== ENCOUNTER → 2025-03-06 | Outpatient (CLI) | payer MEDICARE, BC, SELFPAY ==
[2025-03-06 12:02] LABS: Basophils # (Auto) 0.1 Thou/mm3 (0.0-0.2); Basophils % (Auto) 1 % (0-2.5); Eosinophils # (Auto) 0.1 Thou/mm3 (0.0-0.5); Eosinophils % (Auto) 1 % (0-10); Hematocrit 30.5 % (36.0-46.0); Hemoglobin 10.2 g/dL (12.0-16.0); Immature Granulocytes Auto 0.01 Thou/mm3 (0.00-0.00); Lymphocytes # (Auto) 1.2 Thou/mm3 (1.0-4.8); Lymphocytes % (Auto) 19 % (10-50); Mean Corpuscular HGB Conc 33.4 g/dl (31.0-37.0); Mean Corpuscular Hemoglobin 34.1 pg (25.0-35.0); Mean Corpuscular Volume 102 fL (80-100); Monocytes # (Auto) 0.4 Thou/mm3 (0.0-0.8); Monocytes % (Auto) 7 % (0-12); Neutrophils # (Auto) 4.5 Thou/mm3 (1.8-7.7); Neutrophils % (Auto) 71 % (37-80); Nucleated Red Blood Cell # 0.00 Thou/mm3 (0.00-0.00); Nucleated Red Blood Cell % 0 /100 WBC (0); Platelet Count 120 Thou/mm3 (140-440); RDW Standard Deviation 54.3 fL (36.4-46.3); Red Blood Count 2.99 Miln/mm3 (4.00-5.20); White Blood Count 6.3 Thou/mm3 (3.6-11.0)
--- NOTE | 2025-03-06 12:03 | XR_ITS ---
Examination: Ultrasound-guided paracentesis Abdominal sonogram limited Date and time of exam: March 06, 2025 1228 hours INDICATIONS: Abdominal pain and distention this week, diagnosis malignant ascites Informed consent provided. A timeout was completed verifying correct patient, procedure, site, positioning, and special adequate movement if applicable. Technique: Multiple sonographic images of the abdomen have been obtained. Appropriate area for paracentesis was marked. Local anesthesia is obtained with 1% lidocaine. Yueh catheter is successfully introduced. Findings: Abdominal sonographic images demonstrate sufficient ascitic fluid for paracentesis. After placing the Yueh catheter, 9925 cc of fluid were successfully removed. During and after completion of the procedure the patient appear in satisfactory and stable condition with no complications observed. Estimated blood loss 0 cc Impression: Abdominal ascites Successful ultrasound-guided paracentesis as described above
[2025-03-06 12:08] LABS: INR 1.2 (0.9-1.3); Partial Thromboplastin Time 28.6 Seconds (22.0-36.0); Prothrombin Time 12.9 Seconds (9.0-12.2)
[2025-03-06 12:13] LABS: Alanine Aminotransferase 10 U/L (10-49); Albumin, Serum 3.1 gm/dL (3.4-4.8); Albumin/Globulin Ratio 0.9 (1.2-2.2); Alkaline Phosphatase 55 U/L (46-116); Anion Gap 11 (7-16); Aspartate Amino Transferase 36 U/L (0-34); BUN/Creatinine Ratio 13 Ratio (12-20); Bilirubin,Total 0.9 mg/dL (0.3-1.2); Blood Urea Nitrogen 33 mg/dL (9-23); Calcium 10.1 mg/dL (8.3-10.6); Calcium (Corrected) 10.8 mg/dL (8.5-10.1); Carbon Dioxide 23.7 mMol/L (20.0-31.0); Chloride 105 mMol/L (98-107); Creatinine (Component) 2.6 mg/dL (0.6-1.3); Globulin 3.4 gm/dL (2.3-3.5); Glucose 107 mg/dL (74-106); Osmolality,Calculated 286 (275-295); Potassium 3.9 mMol/L (3.4-5.1); Sodium 140 mMol/L (136-145); Total Protein 6.5 gm/dL (5.7-8.2); eGFR 18 See Note
[2025-03-06] MEDS: ALBUMIN HUMAN 25% IVPB 25 GM/100 ML BTL IV ×2 (14:12→15:15)
== END | disposition home or self-care (01) ==
PROVIDERS: PCP Family Medicine; Referring Provider Internal Medicine Hematology & Oncology; Visit Provider Internal Medicine Hematology & Oncology
DX: R18.8 Other ascites (principal); C50.112 Malignant neoplasm of central portion of left female breast; C50.119 Malignant neoplasm of central portion of unspecified female breast
CPT/HCPCS: 49083; 36415; 80053; 85025; 85610; 85730; C1729; P9047

== ENCOUNTER → 2025-03-17 | Outpatient (CLI) | payer MEDICARE, BC, SELFPAY ==
[2025-03-17 13:36] LABS: Basophils # (Auto) 0.1 Thou/mm3 (0.0-0.2); Basophils % (Auto) 1 % (0-2.5); Eosinophils # (Auto) 0.1 Thou/mm3 (0.0-0.5); Eosinophils % (Auto) 2 % (0-10); Hematocrit 30.9 % (36.0-46.0); Hemoglobin 10.4 g/dL (12.0-16.0); Immature Granulocytes Auto 0.01 Thou/mm3 (0.00-0.00); Lymphocytes # (Auto) 1.8 Thou/mm3 (1.0-4.8); Lymphocytes % (Auto) 24 % (10-50); Mean Corpuscular HGB Conc 33.7 g/dl (31.0-37.0); Mean Corpuscular Hemoglobin 34.4 pg (25.0-35.0); Mean Corpuscular Volume 102 fL (80-100); Monocytes # (Auto) 0.5 Thou/mm3 (0.0-0.8); Monocytes % (Auto) 7 % (0-12); Neutrophils # (Auto) 4.8 Thou/mm3 (1.8-7.7); Neutrophils % (Auto) 66 % (37-80); Nucleated Red Blood Cell # 0.00 Thou/mm3 (0.00-0.00); Nucleated Red Blood Cell % 0 /100 WBC (0); Platelet Count 114 Thou/mm3 (140-440); RDW Standard Deviation 54.1 fL (36.4-46.3); Red Blood Count 3.02 Miln/mm3 (4.00-5.20); White Blood Count 7.3 Thou/mm3 (3.6-11.0)
[2025-03-17 13:47] LABS: Iron 74 mcg/dL (50-170); Percent Iron Saturation 34 % (20-55); Total Iron Binding Capacity 217 mcg/dL (250-425); Unsaturated Iron Binding 143 (225-295)
[2025-03-17 13:48] LABS: Albumin, Serum 3.0 gm/dL (3.4-4.8); Anion Gap 8 (7-16); BUN/Creatinine Ratio 12 Ratio (12-20); Blood Urea Nitrogen 31 mg/dL (9-23); Calcium 9.5 mg/dL (8.3-10.6); Calcium (Corrected) 10.3 mg/dL (8.5-10.1); Carbon Dioxide 23.8 mMol/L (20.0-31.0); Chloride 105 mMol/L (98-107); Creatinine (Component) 2.6 mg/dL (0.6-1.3); Glucose 111 mg/dL (74-106); Osmolality,Calculated 281 (275-295); Phosphorous 3.8 mg/dL (2.4-5.1); Potassium 4.4 mMol/L (3.4-5.1); Sodium 137 mMol/L (136-145); eGFR 18 See Note
[2025-03-17 14:20] LABS: Protein Total, Random Urine 60 mg/dL (1-14)
[2025-03-17 14:29] LABS: Creatinine,Random Urine 425 mg/dL (30-125)
== END | disposition home or self-care (01) ==
LOC: SLAB 11:51
PROVIDERS: PCP Family Medicine; Referring Provider Internal Medicine; Visit Provider Internal Medicine
DX: I12.9 Hypertensive chronic kidney disease with stage 1 through stage 4 chronic kidney disease, or unspecified chronic kidney disease (principal); N18.32 Chronic kidney disease, stage 3b
CPT/HCPCS: 36415; 80069; 82570; 83540; 83550; 84156; 85025

== ENCOUNTER 2025-05-05 03:32 | Emergency (ER) | payer MEDICARE, BC, SELFPAY ==
[2025-05-05] VITALS (29 sets, daily range): BP systolic 70–148; BP diastolic 49–119; PULSE 70–200; RESP 9–95; TEMP 37; O2SAT 78–100; BMI 29.3
--- NOTE | 2025-05-05 03:37 | EKG_ITS ---
[facility] Test Date: 2025-05-05 Pat Name: ELEANOR FLOYD Department: Room: - Gender: Female [employer]: : 1945 Requested By: ED Temporary Provider Order Number: [id number] Reading MD: ED Temporary Provider Measurements Intervals [place] Rate: 150 P: -17 MN: 123 QRS: -11 QRSD: 74 T: -4 QT: 316 QTc: 499 Interpretive Statements SINUS TACHYCARDIA WITH OCCASIONAL VENTRICULAR PREMATURE COMPLEXES, POSSIBLE ATRIAL FLUTTER LOW QRS VOLTAGE IN PRECORDIAL LEADS [QRS DEFLECTION < 1.0 mV IN CHEST LEADS] POSSIBLE ANTERIOR MYOCARDIAL INFARCTION , PROBABLY OLD [30 ms Q WAVE IN V3/V4, OR R < 0.2 mV IN V4] CRITICAL TEST RESULT Compared to ECG 05/31/2023 08:19:18 Myocardial infarct finding now present Sinus rhythm no longer present /store/S0/[id number]/ecg/[id number].pdf
--- NOTE | 2025-05-05 03:39 | XR_ITS ---
Examination: AP chest single view Technique one AP portable semiupright chest single view Date and time: May 05, 2025 0410 hrs. Indications: Shortness of breath today. Findings: Large right pleural effusion Pneumonia in the right lung. Heart is shifted to the left with the mediastinum Left lung mild vascular congestion. Prominent osteopenia Impression: Large right pleural effusion Right lung pneumonia Consider CT chest post intravenous contrast follow-up to exclude underlying right hemithorax tumor
--- NOTE | 2025-05-05 03:45 | PD.EDSOB ---
ED SOB =RME/HPI General Chief Complaint: Shortness of Breath/Dyspnea Stated Complaint: SOB Time Seen by Provider: 05/05/25 03:40 Source: patient, family and EMS Arrival date/time: 05/05/25 03:32 Mode of arrival: EMS RME / HPI RME / HPI Narrative: Ms. Mary is a 79-year-old female with past medical history of hypertension CKD stage IV (follows Dr. Parisi) hypothyroidism breast cancer and liver cirrhosis who presented to [facility] (Former[facility] emergency department on 05/06/2025 with a chief complaint of shortness of breath. Patient brought in by EMS, patient alert and oriented x 3 though most of the history obtained from EMS per EMS was alerted for severe shortness of breath, patient on presentation significantly tachycardic heart rate 130s to 150s, and tachypneic with respiratory rate in 30s, limited history obtained from patient due to shortness of breath. Patient has severe orthopnea unable to lie flat, 4+ bilateral lower extremity edema and generalized anasarca. Related Data Home Medications ?Medication ?Instructions ?Recorded ?Confirmed enalapril maleate 10 mg tablet 10 mg PO BID 05/31/23 05/31/23 metoprolol succinate 25 mg 25 mg PO QDAY 05/31/23 05/31/23 tablet,extended release 24 hr Allergies Allergy/AdvReac Type Severity Reaction Status Date / Time peanut Allergy Verified 01/30/25 14:39 Review of Systems Review of Systems ROS Unobtainable: unobtainable due to medical condition (Increased work of breathing and respiratory distress) Past Medical History Past Medical History Comments PMH COMMENT: PMH: As above PSHx: Unobtainable due to increased work of breathing Allergies: Peanut per chart review Social history: -Smoking: No history of smoking per chart review -Alcohol Use: No history of alcohol abuse per chart review -Illicit Drug Use: No history of illicit drug use per chart review Patient lives with grandson and granddaughter Family History: Unobtainable due to increased work of breathing ED Exam Narrative Physical exam: Physical Exam General: Awake and in moderate to severe acute distress. Conversational unable to talk in detail due to increased work of breathing. HEENT: PERRLA Normocephalic, atraumatic, mucous membranes moist. Heart: Sinus tachycardia, no murmurs. Limited exam due to increased work of breathing Lungs: Bilateral crackles, diminished breath sounds on the right lung with accessory muscle use Abdomen: Soft, distended, ascitic pattern, nontender, positive bowel sounds. Fluid shift noted. ?No guarding or rebound tenderness. Neurologic: Alert and oriented x3, no gross neurological deficit, and patient able to move all 4 extremities. Extremities: 4+ bilateral lower extremity edema with generalized anasarca Skin: No rash or ecchymoses. Pale. Course Course Course Narrative: Patient's vitals reviewed was saturating well on 6 L nasal cannula, was given Bumex 2 mg IV push x 1, nitroglycerin 2 inch topical paste, morphine sulfate 2 mg x 1 and metoprolol tartrate 12.5 x 1. Lema catheter was placed, minimal urine output noted despite Bumex Due to patient's increased work of breathing patient was started on BiPAP. Workup ordered CBC CMP ABG ESR CRP PT/INR APTT D-dimer CMP lactate magnesium phosphorus Pro-Shawn troponin BNP TSH free T4 urinalysis urine electrolytes urine creatinine and urine random urea nitrogen and chest x-ray Patient's grandson and daughter at bedside, discussed with them the acuity and distress of her presentation, informed them that the patient will likely need emergent dialysis because of her severe fluid overload status, per family patient did not want dialysis. However the case was discussed with patient at bedside, explained to her about need of emergent dialysis and she agreed to temporary dialysis catheter placement. Case was discussed with home health nurse licensed practical Dr. Parisi, labs were discussed with him as well Dr. Parisi agreed to proceed with dialysis. Recommended bilateral renal ultrasound. Workup: EKG showed sinus tachycardia CBC: WBC 13.2, RBC 3.06, hemoglobin 10.1, hematocrit 29.5, platelet count 127, ESR 48 Coags PT 12.2 INR 1.1 APTT 30.9 D-dimer 1200 ABG pH 7.25 pCO2 28 bicarb 12 Chemistry sodium 135 potassium 4.6 chloride 104 bicarb 14.4 anion gap 17 BUN 18 creatinine 8.4 GFR 4 glucose 115 osmolality 295 lactate 2.9 corrected calcium 9.7 phosphorus 8.1 magnesium 2.2 bilirubin 0.7 direct bilirubin 0.3 AST 31 ALT 11 alk phos 68 troponin negative CRP 1.2 BNP 214 total protein 6.6 albumin 3.2 globulin 3.4 Pro-Shawn 0.4 TSH 4.54 free T41.31 Free T32.2 Urinalysis turbid urine pH 5.5 protein 1+ blood 2+ glucose negative ketones negative nitrite negative bilirubin negative urobilinogen negative leukocyte esterase positive RBC 15 WBC 244 bacteria 3+ hyaline cast 5 Urine random creatinine 321, sodium less than 15 potassium 37 chloride less than 20 random urea nitrogen 332 Initial chest x-ray showed possible pleural effusion right lung and severe vascular congestion versus pneumonia Sepsis alert was called, patient was given ceftriaxone, no fluid was given as patient was fluid overloaded Case was discussed with hospitalist on-call for admission, decision was made to place central line prior to admission and schedule patient for emergent dialysis Consent obtained from patient for dialysis catheter. Timeout performed prior to procedure, all septic precautions taken. Patient on BiPAP during procedure, was placed in Trendelenburg Post dialysis catheter placement, no good venous return was noted Chest x-ray postdialysis catheter malposition noted, xray otherwise showed worsening pleural effusion however no evidence of pneumothorax or guidewire on chest x-ray. Dialysis Catheter removed, pressure held at site. Patient after had loss of pulse, CODE BLUE initiated chest compressions initiated. ROSC was achieved after first round of CODE BLUE. See CODE BLUE sheet for details. Patient intubated during the CODE BLUE, was given bicarb and multiple rounds of epi Post ROSC patient had another loss of pulse, CODE BLUE initiated, hospitalist team assisted during CODE BLUE, after their conversation with family decision was made to stop compressions. Patient pronounced at time of 0641 Quality Measures Current suspected stage: severe sepsis Possible source: pulmonary and genitourinary Blood cultures ordered: yes Antibiotic ordered: Yes Pertinent labs: 05/05/25 03:40 Lactic Acid 2.9 H mMol/L (0.4-2.0) Procalcitonin 0.40 ng/ml (0.0-0.49) sepsis Orders Category Date Time Status Bedside COVID-19 Antigen Test NOW Care 05/05/25 03:39 Active Bedside Influenza A&B Antigen Test NOW Care 05/05/25 03:40 Completed Blood glucose [Bedside Blood Glucose] NOW Care 05/05/25 03:41 Active Ux Researcher Q4H START 00 Care 05/05/25 03:41 Active Continuous Pulse Oximetry NOW Care 05/05/25 03:42 Completed EKG (ED ONLY) *Do not use* NOW Care 05/05/25 03:37 Completed Insert IV NOW Care 05/05/25 03:41 Active Strict Intake and Output Routine Care 05/05/25 03:41 Ordered Urinary Catheter QS Care 05/05/25 03:41 Active Consult to Nephrology Stat Cons 05/05/25 04:49 Ordered Referral Respiratory Therapy Stat Cons 05/05/25 03:45 Active CXRP [XR chest 1V portable] Stat Exams 05/05/25 03:39 Taken EKG (ED Only) Stat Exams 05/05/25 03:37 Ordered XR chest 1V post procedure Stat Exams 05/05/25 05:48 Taken ABG [Arterial Blood Gas] Stat Lab 05/05/25 03:56 Completed BNP [B-Type Natriuretic Peptide] Stat Lab 05/05/25 03:40 Completed Bilirubin,Direct Stat Lab 05/05/25 03:40 Completed Blood Culture (Lab) Stat Lab 05/05/25 03:50 Received C-Reactive Protein Stat Lab 05/05/25 03:40 Completed CBC Stat Lab 05/05/25 03:40 Completed CMP [Comprehensive Metabolic Panel] Stat Lab 05/05/25 03:40 Completed Creatinine,Random Urine Stat Lab 05/05/25 03:50 Completed D-Dimer Stat Lab 05/05/25 03:40 Completed Electrolytes, Urine Random Stat Lab 05/05/25 03:50 Completed Free T3 Stat Lab 05/05/25 03:40 Completed Free T4 (Free Thyroxine) Stat Lab 05/05/25 03:40 Completed INR [Prothrombin Time with INR] Stat Lab 05/05/25 03:40 Completed Lactate (Lactic Acid) Stat Lab 05/05/25 03:40 Completed Magnesium Stat Lab 05/05/25 03:40 Completed PTT [Partial Thromboplastin Time] Stat Lab 05/05/25 03:40 Completed Path Review Blood Smear Stat Lab 05/05/25 03:40 Completed Phosphorous Stat Lab 05/05/25 03:40 Completed Procalcitonin Stat Lab 05/05/25 03:40 Completed Sed Rate (ESR) Stat Lab 05/05/25 03:40 Completed TSH [Thyroid Stimulating Hormone] Stat Lab 05/05/25 03:40 Completed Troponin I Stat Lab 05/05/25 03:40 Completed Urea Nitrogen, Random Urine Stat Lab 05/05/25 03:50 Completed Urinalysis, C/S if Indicated Stat Lab 05/05/25 03:50 Completed Urine Culture Stat Lab 05/05/25 03:50 Received Bumetanide Inj [Bumex Inj] Med 05/05/25 03:43 Discontinued 2 mg IVP X1 ONE EPINEPHrine in NS 16 MG IVPB [Adrenalin/NS 16 MG IVPB] Med 05/05/25 06:13 Discontinued 16 mg in 250 ml IV .STK-MED EPINEPHrine in NS 4 MG IVPB [Adrenalin/NS 4 MG IVPB] Med 05/05/25 06:12 Active 4 mg in 250 ml IV 0.05 mcg/kg/min Etomidate Inj [Amidate Inj] Med 05/05/25 06:14 Discontinued 20 mg .ROUTE .STK-MED ONE Etomidate Inj [Amidate Inj] Med 05/05/25 06:20 Discontinued 20 mg IVP X1 ONE Metoprolol Tartrate Inj [Lopressor Inj] Med 05/05/25 04:16 Discontinued 2.5 mg IVP X1 ONE Morphine* Inj Med 05/05/25 03:44 Discontinued 2 mg IVP X1 ONE Nitroglycerin Oint 2% [Nitro-paste Oint 2%] Med 05/05/25 03:44 Discontinued 2 inch TOP X1 ONE Propofol 1,000 mg Ivpb [Diprivan Ivpb] Med 05/05/25 06:22 Active 1,000 mg in 100 ml IV 5 mcg/kg/min Rocuronium Inj [Zemuron Inj] Med 05/05/25 06:10 Discontinued 100 mg .ROUTE .STK-MED ONE Rocuronium Inj [Zemuron Inj] Med 05/05/25 06:10 Discontinued 50 mg IVP X1 ONE Rocuronium Inj [Zemuron Inj] Med 05/05/25 06:12 Discontinued 50 mg IVP X1 ONE Sodium Bicarb 8.4% SYR Med 05/05/25 05:18 Discontinued 50 ml IV X1 ONE Sodium Chloride 0.9% [Ns] 96 ml Med 05/05/25 06:19 Active Phenylephrine HCl [Phenylephrine] 40 mg IV 0.1 mcg/kg/min Succinylcholine Inj [Anectine Inj] Med 05/05/25 06:13 Discontinued 20 mg IV X1 ONE cefTRIAXone/D5w 1gm IV premix [Rocephin/D5w 1gm IV Med 05/05/25 04:48 Discontinued premix] 1 g in 50 ml IV X1 fentaNYL 2,500 MCG/250 ML BAG [Sublimaze Inj 2,500 MCG/ Med 05/05/25 06:22 Active 250 ML BAG] 2,500 mcg in 250 ml IV 25 mcg/hr BiPAP / CPAP NOW RT 05/05/25 03:52 Active EKG (RT) Stat RT 05/05/25 03:41 Ordered Oxygen Delivery PRN RT 05/05/25 03:41 Active Vital Signs Vital signs: Vital Signs Temperature 98.6 F 05/05/25 03:40 Pulse Rate 147 H 05/05/25 03:40 Respiratory Rate 23 H 05/05/25 03:40 Blood Pressure 148/119 H 05/05/25 03:40 Pulse Oximetry (%) 96 05/05/25 03:40 Oxygen Delivery Method Nasal Cannula 05/05/25 03:40 Oxygen Flow Rate 4 05/05/25 03:40 PROCEDURES: Central Line Placement Right IJ: Time Out Performed: Yes Patient Placed on Monitor/Pulse Ox: Yes Hand Hygiene: scrub, soap & water and alcohol-based hand rub Max Sterile Barrier Techniques used: cap, mask, sterile gown, sterile gloves and sterile full body drape Central Line Prep: Chlorhexidine scrub and sterile drapes applied Local Anesthetic: lidocaine 1% Amount of anesthesia used (mL): 5 Ultrasound Used for Placement: Yes Sterile Technique if Ultrasound used, including sterile gel: yes Central Line Lumen Inserted: double Post Procedure X-Ray: other (Tip in poor position) Patient Tolerated Procedure: other (No blood aspirated post procedure tip possibly in poor position) Complications: catheter malposition Additional Comments: Catheter malposition noted on chest x-ray, temporary dialysis catheter removed. Procedure performed under supervision of ED physician Dr. Penaloza Shortness of Breath / Dyspnea MDM Narrative MDM Narrative:: # Acute on chronic renal failure #Severe fluid overload #Pulmonary edema, severe vascular congestion #Anasarca #Thrombocytopenia, Suspected Ascites history of liver cirrhosis #Right-sided pleural effusion #High anion gap metabolic acidosis, secondary to elevated BUN renal failure and lactic acidosis #Suspicion of sepsis secondary to UTI/pneumonia Course as above. Case discussed with Attending Physician Dr. Ca Carvalho MD Internal Medicine PGY-2 Disclaimer: This note was dictated by speech recognition. Minor errors in assault boat coxswain may be present due to voice recognition software. Patient data External records reviewed:: [facility] previous records Clinical information provided by:: patient, EMS and family Social determinants that could affect healthcare access:: none Patient has the following chronic illnesses:: As Above How is presenting disease/condition affected by chronic disease/condition?: exacerbated by Evaluation data The following diagnostics were reviewed and interpreted by me:: lab results, radiology exam(s) and EKG tracing(s) Lab and/or radiology exams considered but not ordered:: None Interpretation Summary: As Above Medications / Prescriptions Medications or Prescriptions considered but not ordered:: None Medication administrations:: Medication Administration History Epinephrine/Sodium Chloride (Adrenalin/Ns 4 Mg Ivpb) 4 mg in 250 mls @ 15.479 mls/hr IV .[id number] PRN; Protocol PRN Reason: per protocol Stop: 06/04/25 06:11 Last Titration: 05/05/25 06:40 Dose: 0 mcg/kg/min, 0 mls/hr Documented By: Admin: 05/05/25 06:25 Dose: 0.05 mcg/kg/min, 15.479 mls/hr Documented By: ISELA Phenylephrine HCl 40 mg/ (Sodium Chloride) 100 mls @ 1.238 mls/hr IV .Q24H PRN; Protocol PRN Reason: Per Cardiogenic Protocol Stop: 06/04/25 06:18 Fentanyl Citrate (Sublimaze Inj 2,500 Mcg/250 Ml Bag) 2,500 mcg in 250 mls @ 2.5 mls/hr IV .Q24H PRN; Protocol PRN Reason: PER PROTOCOL Stop: 05/10/25 06:21 Propofol (Diprivan Ivpb) 1,000 mg in 100 mls @ 2.477 mls/hr IV .Q24H PRN; Protocol PRN Reason: PER PROTOCOL Stop: 06/04/25 06:21 Discontinued Medications Bumetanide (Bumetanide Inj 0.25 Mg/Ml Vial 4 Ml) 2 mg IVP X1 ONE Stop: 05/05/25 03:44 Last Admin: 05/05/25 03:54 Dose: 2 mg Documented By: SANYA Etomidate (Etomidate Inj 2 Mg/Ml Vial 10 Ml) Confirm Administered Dose 20 mg .ROUTE .STK-MED ONE Stop: 05/05/25 06:15 Last Admin: 05/05/25 06:26 Dose: Not Given Documented By: [email or web address] Non-Admin Reason: Override Medication Etomidate (Etomidate Inj 2 Mg/Ml Vial 10 Ml) 20 mg IVP X1 ONE Stop: 05/05/25 06:21 Last Admin: 05/05/25 06:19 Dose: 20 mg Documented By: ISELA Ceftriaxone Sodium/Dextrose (Rocephin/D5w 1gm Iv Premix) 1 g in 50 mls @ 100 mls/hr IV X1 ONE Stop: 05/05/25 05:17 Last Infusion: 05/05/25 05:53 Dose: Infused Documented By: Admin: 05/05/25 05:08 Dose: 100 mls/hr Documented By: ISELA Epinephrine/Sodium Chloride (Adrenalin/Ns 16 Mg Ivpb) Confirm Administered Dose 16 mg in 250 mls @ ud IV .STK-MED ONE Stop: 05/05/25 06:14 Last Admin: 05/05/25 06:18 Dose: Not Given Documented By: ISELA Non-Admin Reason: Override Medication Metoprolol Tartrate (Metoprolol Tartrate Inj 1 Mg/Ml Amp 5 Ml) 2.5 mg IVP X1 ONE Stop: 05/05/25 04:17 Last Admin: 05/05/25 04:23 Dose: 2.5 mg Documented By: ISELA Morphine Sulfate (Morphine Sulf Inj 4 Mg/Ml Vial) 2 mg IVP X1 ONE Stop: 05/05/25 03:45 Last Admin: 05/05/25 04:04 Dose: 2 mg Documented By: ISELA Nitroglycerin (Nitroglycerin Oint 2% 1 Inch Packet) 2 inch TOP X1 ONE Stop: 05/05/25 03:45 Last Admin: 05/05/25 04:04 Dose: 2 inch Documented By: ISELA Rocuronium [place] (Rocuronium Inj 10 Mg/Ml Vial 10 Ml) 50 mg IVP X1 ONE Stop: 05/05/25 06:11 Last Admin: 05/05/25 06:19 Dose: 50 mg Documented By: ISELA Co-signed By: AUGUSTINA Rocuronium [place] (Rocuronium Inj 10 Mg/Ml Vial 10 Ml) 50 mg IVP X1 ONE Stop: 05/05/25 06:13 Last Admin: 05/05/25 06:43 Dose: Not Given Documented By: [email or web address] Non-Admin Reason: Duplicate Medication on eMAR Rocuronium [place] (Rocuronium Inj 10 Mg/Ml Vial 10 Ml) Confirm Administered Dose 100 mg .ROUTE .STK-MED ONE Stop: 05/05/25 06:11 Last Admin: 05/05/25 06:17 Dose: Not Given Documented By: [email or web address] Non-Admin Reason: Override Medication Sodium Bicarbonate (Sodium Bicarb Inj 8.4% Syr 50 Ml Syringe) 50 ml IV X1 ONE Stop: 05/05/25 05:19 Last Admin: 05/05/25 06:43 Dose: Not Given Documented By: [email or web address] Non-Admin Reason: Cancelled by Provider Succinylcholine Chloride (Succinylcholine Inj 20 Mg/Ml Vial 10 Ml) 20 mg IV X1 ONE Stop: 05/05/25 06:14 Last Admin: 05/05/25 06:20 Dose: Not Given Documented By: [email or web address] Non-Admin Reason: Cancelled by Provider As Above Consultations Consultation(s) initiated? (list below): Yes Consultation #1 (Physician, Specialty, Details): Dr Parisi, Volunteer Services Supervisor Diagnosis Shortness of Breath Differential Diagnosis: congestive heart failure and other (Fluid Overload) Most likely diagnosis given after review of the tests above:: Acute on chronic renal failure, Severe fluid overload, Pulmonary edema, severe vascular congestion, Anasarca Admission Indicated Admission indicated?: indicated Admission Request Was there a request for admission?: Yes Admission Attestation Admission request attestation: Discussed case with [] from Hospitalist service regarding admission. Discussed patients ED course, exam findings, labs, and radiology results. The Hospitalist [agrees,declines] to accept the patient for admission. Disposition Plan Disposition Plan: Admit Discharge Plan Plan Patient Disposition: Prescriptions/Referrals Referrals: Lev Goodman MD [Primary Care Provider, Family Practice] - In 1 week Problem List Clinical Impression: Multiple organ failure, Fluid overload, Acute on chronic renal failure, Cirrhosis of liver, Pulmonary edema, Cardiac arrest Patient/Caregiver Discharge Instructions Print Language: Macedonian
[2025-05-05] MEDS: BUMETANIDE INJ 0.25 MG/ML VIAL 4 ML 2 MG IVP (03:54)
[2025-05-05 04:01] LABS: Base Excess -14 (-3-3); HCO3 12 mEq/L (20-26); Inspired Oxygen, FIO2 21 %; O2 Saturation 98 % (91-98); PCO2 28 mmHg (32.0-48.0); PO2 101 mmHg (83-108); pH, Arterial 7.25 (7.35-7.45)
[2025-05-05 04:02] LABS: Allen Test Performed/OK; Puncture Site Right Radial
[2025-05-05 04:02] LABS: Collection Type, Urine Clean Catch
[2025-05-05 04:03] LABS: Lactate (Lactic Acid) 2.9 mMol/L (0.4-2.0)
[2025-05-05] MEDS: MORPHINE SULF INJ 4 MG/ML VIAL 2 MG IVP (04:04)
[2025-05-05] MEDS: NITROGLYCERIN OINT 2% 1 INCH PACKET 2 INCH TOP (04:04)
[2025-05-05 04:05] LABS: Basophils # (Auto) 0.1 Thou/mm3 (0.0-0.2); Basophils % (Auto) 1 % (0-2.5); Eosinophils # (Auto) 0.7 Thou/mm3 (0.0-0.5); Eosinophils % (Auto) 6 % (0-10); Hematocrit 29.5 % (36.0-46.0); Hemoglobin 10.1 g/dL (12.0-16.0); Immature Granulocytes Auto 0.03 Thou/mm3 (0.00-0.00); Lymphocytes # (Auto) 6.3 Thou/mm3 (1.0-4.8); Lymphocytes % (Auto) 48 % (10-50); Mean Corpuscular HGB Conc 34.2 g/dl (31.0-37.0); Mean Corpuscular Hemoglobin 33.0 pg (25.0-35.0); Mean Corpuscular Volume 96 fL (80-100); Monocytes # (Auto) 0.7 Thou/mm3 (0.0-0.8); Monocytes % (Auto) 5 % (0-12); Neutrophils # (Auto) 5.4 Thou/mm3 (1.8-7.7); Neutrophils % (Auto) 41 % (37-80); Nucleated Red Blood Cell # 0.00 Thou/mm3 (0.00-0.00); Nucleated Red Blood Cell % 0 /100 WBC (0); Platelet Count 127 Thou/mm3 (140-440); RDW Standard Deviation 49.2 fL (36.4-46.3); Red Blood Count 3.06 Miln/mm3 (4.00-5.20); White Blood Count 13.2 Thou/mm3 (3.6-11.0)
[2025-05-05 04:20] LABS: Sed Rate (ESR) 48 mm/hr (0-30)
[2025-05-05 04:21] LABS: Path Review Blood Smear Sent to Pathologist
[2025-05-05] MEDS: METOPROLOL TARTRATE INJ 1 MG/ML AMP 5 ML 2.5 MG IVP (04:23)
[2025-05-05 04:25] LABS: INR 1.1 (0.9-1.3); Partial Thromboplastin Time 30.9 Seconds (22.0-36.0); Prothrombin Time 12.2 Seconds (9.0-12.2)
[2025-05-05 04:29] LABS: Bacteria,Urine 3+; Bilirubin,Urine Negative (Negative); Blood,Urine 2+ (Negative); Clarity,Urine Turbid (Clear/Hazy); Color,Urine Yellow (Lt Yel-Yel); Glucose, Urine Negative (Negative); Hyaline Casts,Urine 5 /hpf (0-1); Ketones,Urine Negative (Negative); Leukocyte Esterase,Urine Positive (Negative); Nitrite,Urine Negative (Negative); PH,Urine 5.5 (5.0-7.0); Protein,Urine 1+ (Neg - Trace); RBC,Urine 50 /hpf (0-3); Specific Gravity,Urine 1.019 (1.001-1.035); Squamous Epithelial Cell,Urine < 1 /hpf (0-5); Urobilinogen,Urine Negative mg/dL (0.0-1.0); WBC,Urine 244 /hpf (0-5)
[2025-05-05 04:38] LABS: Alanine Aminotransferase 11 U/L (10-49); Albumin, Serum 3.2 gm/dL (3.4-4.8); Albumin/Globulin Ratio 0.9 (1.2-2.2); Alkaline Phosphatase 68 U/L (46-116); Anion Gap 17 (7-16); Aspartate Amino Transferase 31 U/L (0-34); BUN/Creatinine Ratio 10 Ratio (12-20); Bilirubin,Direct 0.3 mg/dL (0.0-0.3); Bilirubin,Total 0.7 mg/dL (0.3-1.2); Blood Urea Nitrogen 80 mg/dL (9-23); C-Reactive Protein 1.2 mg/dL (0.0-0.9); Calcium 9.1 mg/dL (8.3-10.6); Calcium (Corrected) 9.7 mg/dL (8.5-10.1); Chloride 104 mMol/L (98-107); Creatinine (Component) 8.4 mg/dL (0.6-1.3); Estimated Creatinine Clearance 5.7 mL/min (>60); Free T3 2.2 pg/mL (2.3-4.2); Free T4 (Free Thyroxine) 1.31 ng/dL (0.89-1.76); Globulin 3.4 gm/dL (2.3-3.5); Glucose 115 mg/dL (74-106); Magnesium 2.2 mg/dL (1.6-2.6); Osmolality,Calculated 295 (275-295); Phosphorous 8.1 mg/dL (2.4-5.1); Potassium 4.6 mMol/L (3.4-5.1); Procalcitonin 0.40 ng/ml (0.0-0.49); Sodium 135 mMol/L (136-145); Thyroid Stimulating Hormone 4.54 uIU/mL (0.55-4.78); Total Protein 6.6 gm/dL (5.7-8.2); Troponin I 0.020 ng/mL (0.0-0.045); eGFR 4 See Note
[2025-05-05 04:41] LABS: D-Dimer 1200 ng/mL (<600)
[2025-05-05 04:44] LABS: Culture Indicated,Urine Yes
[2025-05-05 04:44] LABS: Carbon Dioxide 14.4 mMol/L (20.0-31.0)
[2025-05-05 04:54] LABS: B-Type Natriuretic Peptide 214 pg/mL (0-100)
[2025-05-05] MEDS: cefTRIAXone/D5w 1gm IV premix 1 G/50 ML BAG IV (05:08)
[2025-05-05 05:41] LABS: Chloride,Urine Random < 20.0 mMol/L (55.0-125.0); Creatinine,Random Urine 321 mg/dL (30-125); Potassium,Urine Random 37 mMol/L (12-62); Sodium,Urine Random < 15.0 mMol/L (20.0-110.0); Urea Nitrogen, Random Urine 332.0 mg/dL (350.0-1000.0)
--- NOTE | 2025-05-05 05:48 | XR_ITS ---
Examination: AP chest single view Technique: AP portable supine chest single view Date and time: May 05, 2025 0552 hrs., Comparison 0410 hrs. Indications: Post Vas-Cath placement Findings: Right internal jugular temporary dialysis catheter proximal internal jugular vein Large right pleural effusion and opacification right lung again depicted Impression: Recommend advancing the dialysis catheter with repeat chest x-ray
[2025-05-05] MEDS: ROCURONIUM INJ 10 MG/ML VIAL 10 ML 50 MG IVP (06:19)
[2025-05-05] MEDS: ETOMIDATE INJ 2 MG/ML VIAL 10 ML 20 MG IVP (06:19)
[2025-05-05] MEDS: EPINEPHrine in NS 4 MG IVPB 4 MG/250 ML BAG 15.479 MG IV (06:25)
--- NOTE | 2025-05-05 06:52 | PC.NURSE ---
Spoke to Phill jolly number 6 from [facility] and reported . Phill from [facility] stated they will not respond due to being caused naturally. Phill requested to be called back when family has made decision on mortuary.
[2025-05-05 06:59] LABS: Reflex Lactate? Y
--- NOTE | 2025-05-05 07:00 | CHAP ---
Responded to call from the E.R.. Family had requested a options advisor for patient who had just . I called Deacon Patricia from [facility] who came right away to give comfort and offer prayer. (07:00)
--- NOTE | 2025-05-05 07:30 | DES_ITS ---
Documentation for date of: 05/05/25 Pronouncement Note Date and Time of Date of : 05/05/25 Time of : 06:41 PCOD Preliminary cause of : Cardiac arrest Contributing Factors (1) Multiple organ failure: (2) Fluid overload: (3) Acute on chronic renal failure: (4) Cirrhosis of liver: (5) Pulmonary edema: Summary Additional details: Ms. Mary was a 79-year-old female with past medical history of hypertension CKD stage IV (follows Dr. Parisi) hypothyroidism breast cancer and liver cirrhosis who presented to [facility] emergency department on 05/06/2025 with a chief complaint of shortness of breath. Patient brought in by EMS, patient alert and oriented x 3 though most of the history obtained from EMS per EMS was alerted for severe shortness of breath, patient on presentation significantly tachycardic heart rate 130s to 150s, and tachypneic with respiratory rate in 30s, limited history obtained from patient due to shortness of breath. Patient has severe orthopnea unable to lie flat, 4+ bilateral lower extremity edema and generalized anasarca. Patient was started on BiPAP due to increased work of breathing, workup obtained showed acute on chronic renal failure, low platelets were noted as well, patient had history of cirrhosis, chest x-ray showed possible right-sided pleural effusion with significant pulmonary edema, also suspicion of pneumonia. Urine analysis showed UTI, sepsis alert was initiated patient was given ceftriaxone. Patient was given bumex, nitroglycerin morphine and metoprolol, Lema catheter was placed, no urine output noted on Lema catheter, case was discussed with hospitalist team and nephrology, decision was made to place emergent dialysis catheter due to patient's acuity of sickness, family verbalized that they wanted everything done and patient gave consent to dialysis catheter placement. Dialysis catheter placement was attempted however catheter malposition was noted on chest x-ray and dialysis catheter was removed. Patient on BiPAP, patient had loss of pulse, CODE BLUE initiated chest compressions and ACLS measures initiated. ROSC was achieved after first round of ACLS. See CODE BLUE sheet for details. Patient intubated during the first round of ACLS, was given bicarb and multiple rounds of epinephrine. Post ROSC after first ACLS around, patient had another loss of pulse, second CODE BLUE initiated, hospitalist team assisted during CODE BLUE, after their conversation with family decision was made to stop compressions per family's request. Asystole on telemetry around. On exam the patient did not respond to verbal or physical stimuli. Absent heart and breath sounds for 1 minute. Absent peripheral pulses. Pupils are fixed and dilated. Corneal reflex absent. Patient pronounced at 0641. ED physician Dr. Raza at bedside. Condolences given to family. Time of 0641 Case discussed with Attending Physician Dr. Luz Marina Carvalho MD Internal Medicine PGY-2 Disclaimer: This note was dictated by speech recognition. Minor errors in aquatic centre manager may be present due to voice recognition software. Additional Data Confirmation of : no pulse, no respirations, no heart sounds, pupils fixed and dilated and other (No cardiac activity visualized on ultrasound) Family: at bedside Additional persons at bedside: other (ACLS team: Nurses, residents) Attending/PCP notified?: Yes Attending physician: Dr Raza Was code activated?: Yes
--- NOTE | 2025-05-05 08:53 | PD.RESPROC ---
PROCEDURES: Procedure Date / Time 05/05/25 0853 Intubation Indication(s): acute Resp Failure and inability to protect airway Informed consent obtained: from patient Time out done, and the following verified: correct patient, side and site, procedure, patient position and implants and/or equipment Sedative: etomidate Mg given: 20 Paralytic: rocuronium Mg given: 50 Laryngoscope: fiber optic video scope Assist device used: Bougie ET tube size: 7 ET tube uncuffed: Yes Tube secured depth (cm): 21 Tube placement confirmation: visualized tube passing through cords, equal breath sounds bilaterally, no breath sounds over epigastrium and confirmation by capnometry Patient tolerated procedure: well Intubation complications: none
== END 2025-05-05 06:41 | disposition expired ==
PROVIDERS: Emergency Provider Emergency Medicine; PCP Family Medicine
DX: N17.9 Acute kidney failure, unspecified (principal); J96.00 Acute respiratory failure, unspecified whether with hypoxia or hypercapnia; E87.70 Fluid overload, unspecified; J81.1 Chronic pulmonary edema; N39.0 Urinary tract infection, site not specified; J90 Pleural effusion, not elsewhere classified; E87.20 Acidosis, unspecified; D69.6 Thrombocytopenia, unspecified; R00.0 Tachycardia, unspecified; T82.42XA Displacement of vascular dialysis catheter, initial encounter; I46.9 Cardiac arrest, cause unspecified; I12.9 Hypertensive chronic kidney disease with stage 1 through stage 4 chronic kidney disease, or unspecified chronic kidney disease; N18.4 Chronic kidney disease, stage 4 (severe); E03.9 Hypothyroidism, unspecified; K74.60 Unspecified cirrhosis of liver; Z85.3 Personal history of malignant neoplasm of breast; Z91.010 Allergy to peanuts; Y84.8 Other medical procedures as the cause of abnormal reaction of the patient, or of later complication, without mention of misadventure at the time of the procedure
CPT/HCPCS: 31500; 36556; 76937; 51702; 36415; 36600; 71045; 80053; 81001; 82248; 82436; 82570; 82803; 83605; 83735; 83880; 84100; 84133; 84145; 84300; 84439; 84443; 84481; 84484; 84540; 85025; 85379; 85610; 85652; 85730; 86140; 87040; 87077; 87086; 87186; 87400; 87811; 92950; 93005; 94002; 94660; 96365; 96375; 99285; A4314; J0168; J0171; J0696; J2270; J3490; A9270